=== PATIENT | female | born 1955 | race Caucasian/White ===

== ENCOUNTER → 2020-12-05 14:33 | Outpatient (CLI) | payer MEDICARE, OTHER, SELFPAY ==
--- NOTE | ~2020-12-05 | MM_ITS ---
EXAMINATION: MM screening [facility] BI w jeremy HISTORY: Screening TECHNIQUE: Craniocaudal and mediolateral oblique 3-D tomosynthesis images were obtained and synthetic 2-D images were generated. CAD analysis was submitted and interpreted. COMPARISON: Comparison to multiple prior studies sequentially, with oldest reviewed study dated 05/31. BREAST PARENCHYMAL COMPOSITION: There are scattered areas of fibroglandular density. FINDINGS: There is no evidence of suspicious mass, calcification, or architectural distortion to sugg est malignancy in either breast. There has been no suspicious interval change. IMPRESSION: 1. No mammographic evidence of malignancy. 2. Recommend routine screening mammography in one year. BI-RADS Category 1: Negative Reviewed, dictated and finalized at location A.
== END ==
PROVIDERS: PCP Family Medicine; Visit Provider Family Medicine
DX: Z12.31 Encounter for screening mammogram for malignant neoplasm of breast (principal)
CPT/HCPCS: 77063; 77067

== ENCOUNTER → 2021-06-09 13:43 | Outpatient (CLI) | payer MEDICARE, OTHER, SELFPAY ==
--- NOTE | ~2021-06-09 | DEXA_ITS ---
Bone Density Report Name: FREDRICK HOLCOMB Age: 65 Sex: Female Ethnicity: White Date of : 1955 Indication: osteopenia; postmenopausal Referring Provider: VALE, MYLES Vázquez Study: Bone densitometry was performed. Exam Date: June 09, 2021 Accession number: [id number] Bone Density: Region BMD T-score Z-score Classification AP Spine (L1-L4) 1.060 0.1 2.0 Normal Femoral Neck (Left) 0.656 -1.7 -0.1 Osteopenia Total Hip (Left) 0.807 -1.1 0.2 Osteopenia Femoral Neck (Right) 0.641 -1.9 -0.3 Osteopenia Total Hip (Right) 0.758 -1.5 -0.2 Osteopenia Total Hip Mean 0.783 -1.3 0.0 Osteopenia World Health Organization criteria for BMD impression classify patients as: Normal (T-score at or above -1.0), Osteopenia (T-score between -1.0 and -2.5), or Osteoporosis (T-score at or below -2.5). 10-year Fracture Risk(1): Major Osteoporotic Fracture 10% Hip Fracture 1.5% Reported Risk Factors: [place] (), Neck BMD=0.641, BMI=26.5 (1) FRAX(R) Version 3.08. Fracture probability calculated for an untreated patient. Fracture probability may be lower if the patient has received treatment. Previous Exams: Region Exam Age BMD T-score BMD Change BMD Change Date g/cm2 vs Baseline vs Previous AP Spine(L1-L4) 06/09/2021 65 1.060 0.1 0.004 0.052* 07/15/2012 56 1.008 -0.4 -0.047* -0.001 05/21/2010 54 1.010 -0.3 -0.046* -0.046* 04/30/2008 52 1.056 0.1 Total Hip(Left) 06/09/2021 65 0.807 -1.1 -0.049* -0.022 07/15/2012 56 0.830 -0.9 -0.027 -0.003 05/21/2010 54 0.833 -0.9 -0.024 -0.024 04/30/2008 52 0.857 -0.7 Total Hip(Right) 06/09/2021 65 0.758 -1.5 -0.087* -0.025 07/15/2012 56 0.783 -1.3 -0.062* -0.032* 05/21/2010 54 0.816 -1.0 -0.030* -0.030* 04/30/2008 52 0.845 -0.8 *Denotes significance at 95% confidence level, LSC for AP Spine = 0.022 g/cm2, LSC for Total Hip = 0.027 g/cm2 Clinical Information Provided by Patient: Has used the following medications: Vitamin D, MTV, SYNTHROID Patient maximum height was 65.0 Menopause Age: 51 No regular weight bearing exercise Drinks caffeinated beverages Onset of menses at age 11 Number of children 3 Impression: The patient has low bone mass, based on the Right Femoral Neck T-score. The patient h
== END ==
PROVIDERS: PCP Family Medicine; Visit Provider Family Medicine
DX: Z78.0 Asymptomatic menopausal state (principal); M85.852 Other specified disorders of bone density and structure, left thigh; M85.851 Other specified disorders of bone density and structure, right thigh
CPT/HCPCS: 77080

== ENCOUNTER → 2021-06-09 13:50 | Outpatient (CLI) | payer MEDICARE, OTHER, SELFPAY ==
--- NOTE | ~2021-06-09 | MR_ITS ---
EXAMINATION: MR abdomen wo/w con DATE: 06/09/2021 14:57 INDICATION: Pancreatic mass. TECHNIQUE: Magnetic resonance imaging (MRI) of the abdomen was performed without and with 14 mL Multi Robert intravenous contrast. Sequences included coronal T2-weighted FS FSE, coronal and axial FS FIEST A, axial T2-weighted FSE, coronal LAVA-flex, axial STIR FSE, axial DWI, axial dual-echo T1-weighted F SPGR, and axial LAVA. Postcontrast sequences included coronal LAVA-flex and a time course of axial LA VA. COMPARISON: None. FINDINGS: There are cysts in the liver measuring up to 6 mm. The gallbladder, spleen, adrenal glands are normal . There are cysts in the kidneys measuring up to 5 mm on the left. There is a 3.1 x 1.8 cm x 3.1 cyst ic lesion in the head of the pancreas with likely communication with the main pancreatic duct. No enh ancing component or wall thickening. The pancreatic duct is normal in caliber. There are no dilated l oops of bowel. There are no pathologically enlarged lymph nodes. There is no free intraperitoneal flu id. IMPRESSION: 1. 3.1 cm cystic lesion in the head of the pancreas with low risk features. The differential diagnosi s includes pseudocyst, intraductal papillary mucinous neoplasm (IPMN), mucinous cystic neoplasm (MCN) , serous cystadenoma, and neuroendocrine tumor. Consider endoscopic ultrasound with fine-needle aspir ation or follow-up abdomen MRI without and with contrast in 6 months. Reviewed, dictated and finalized at location A. IMPRESSION: 1. 3.1 cm cystic lesion in the head of the pancreas with low risk features. The differential diagnosis includes pseudocyst, intraductal papillary mucinous maximilian plasm (IPMN), mucinous cystic neoplasm (MCN), serous cystadenoma, and neuroendo crine tumor. Consider endoscopic ultrasound with fine-needle aspiration or foll ow-up abdomen MRI without and with contrast in 6 months.
[2021-06-09 14:10] LABS: Estimated Glomerular Filt Rate > 60
== END ==
PROVIDERS: PCP Family Medicine
DX: K86.89 Other specified diseases of pancreas (principal)
CPT/HCPCS: 74183; A9577

== ENCOUNTER → 2021-11-18 10:44 | Outpatient (CLI) | payer MEDICARE, OTHER, SELFPAY ==
--- NOTE | ~2021-11-18 | MR_ITS ---
EXAMINATION: MR MRCP wo/w con/w 3D wo ind DATE: 11/18/2021 12:03 INDICATION: Pancreatic mass. TECHNIQUE: Magnetic resonance imaging (MRI) of the abdomen was performed without and with 14 mL Multi Robert intravenous contrast. Sequences included coronal T2-weighted FS FSE, coronal T2-weighted FSE, a xial T1-weighted LAVA, coronal FS FIESTA, axial dual-echo T1-weighted SPGR, coronal lava-FLEX, sagitt al T2-weighted FSE, axial T2-weighted FSE, and axial DWI. Thick-slab T2-weighted FSE images were obta ined for magnetic resonance cholangiopancreatography (MRCP). Maximum intensity projection 3-D reconst ructions of the volumetric data were created by the technologist. Postcontrast sequences included cor onal LAVA-flex and time course of axial T1-weighted LAVA. COMPARISON: Abdomen MRI 06/09/2021 FINDINGS: ABDOMEN MRI: There are cysts in the liver measuring up to 5 mm. The gallbladder, spleen, and adrenal glands are normal. There are cysts in the kidneys measuring up to 6 mm on the left. There is a 3.5 x 2.4 x 3.2 cm cystic lesion of the head of the pancreas that previously measured 3.1 x 1.8 x 3.1 cm. N o enhancing component or wall thickening. The pancreatic duct is normal in caliber. There are no dila christy loops of bowel. ABDOMEN MRCP: The common duct is normal in caliber and measures 5 mm. IMPRESSION: 1. Stable 3.5 cm cystic lesion in the head of the pancreas with low risk features. The differential d iagnosis includes pseudocyst, intraductal papillary mucinous neoplasm (IPMN), mucinous cystic neoplas m (MCN), serous cystadenoma, and neuroendocrine tumor. Abdomen MRI without and with contrast is recom mended in 6 months. Reviewed, dictated and finalized at location A. IMPRESSION: 1. Stable 3.5 cm cystic lesion in the head of the pancreas with low risk featur es. The differential diagnosis includes pseudocyst, intraductal papillary mucin ous neoplasm (IPMN), mucinous cystic neoplasm (MCN), serous cystadenoma, and ne uroendocrine tumor. Abdomen MRI without and with contrast is recommended in 6 [facility].
== END ==
DX: K86.89 Other specified diseases of pancreas (principal)
CPT/HCPCS: 74183; 76376; A9577

== ENCOUNTER 2022-03-08 12:39 | Emergency (ER) | payer MEDICARE, OTHER, SELFPAY ==
[2022-03-08 12:57] VITALS: BP 104/63; PULSE 77; RESP 16; TEMP 37.3; O2SAT 98
--- NOTE | 2022-03-08 13:17 | ED.GENADULT ---
HPI - General Adult General Chief complaint: Fever Stated complaint: Fever/ Vomiting Time Seen by Provider: 03/08/22 13:20 Source: patient, RN notes reviewed and old records reviewed Mode of arrival: ambulatory Limitations: no limitations History of Present Illness HPI narrative: 66-year-old female presents to the [facility] with complaints of fever and vomiting. Reports that her was here last week on Wednesday and tested positive for COVID. She took 3 test last week they were all negative. Woke up this morning with a fever and generalized fatigue and body aches. Related Data Home Medications Medication Instructions Recorded Confirmed escitalopram oxalate 20 mg tablet 20 mg PO DAILY 03/08/22 03/08/22 fluticasone propionate 50 2 spray intranasal DIRECTED 03/08/22 03/08/22 mcg/actuation nasal spray,suspension levothyroxine 75 mcg tablet 75 mcg PO DAILY 03/08/22 03/08/22 (Synthroid) loratadine 10 mg tablet 10 mg PO DAILY 03/08/22 03/08/22 rosuvastatin 10 mg tablet 10 mg PO DAILY 03/08/22 03/08/22 Allergies Allergy/AdvReac Type Severity Reaction Status Date / Time methylprednisolone Allergy Unknown Unknown Verified 03/08/22 12:55 naproxen Allergy Unknown Other Verified 03/08/22 12:55 Sulfa (Sulfonamide Allergy Unknown Other Verified 03/08/22 12:55 Antibiotics) Review of Systems Review of Systems: All systems reviewed & are unremarkable except as noted in HPI and below Constitutional: Constitutional: Reports as per HPI, Reports fatigue and Reports fever(s) Eyes: Eyes: Reports no additional eye complaints ENT: Reports system reviewed and no additional complaints, except as documented Cardiovascular: Cardiovascular: Reports no additional cardiovascular complaints, Denies chest pain and Denies dyspnea Respiratory: Respiratory: Reports no additional respiratory complaints, Denies chest congestion, Denies cough and Denies dyspnea Gastrointestinal: Gastrointestinal: Reports as per HPI, Denies abdominal pain, Reports nausea and Reports vomiting Musculoskeletal: Musculoskeletal: Reports no additional musculoskeletal complaints Integumentary/Breasts: Skin/Breast: Reports system reviewed and no additional complaints, except as docu Neurologic: Reports system reviewed and no additional complaints, except as documented Psychiatric: Psychiatric: Reports no additional psychiatric complaints Allergic/Immunologic: Allergic/Immunologic: Reports no additional allergic/immunologic complaints PMFSH Past Medical History Medical History (Updated 03/08/22 @ 17:59 by Niru Mayorga APRN) Anxiety and depression High cholesterol Hypothyroid Family History Family History Father Hypertension Family history of elevated blood lipids Mother Hypertension Family history of elevated blood lipids Sibling Family history of elevated blood lipids Social History Social History Smoking status: Former smoker Smoking end date: 03/08/93 Alcohol intake: current Comments At the time of my signature, I reviewed and agree with the nursing past medical, surgical, social, and family history. There is no relevant family history pertinent to the patient complaint. Exam Const: General: cooperative, healthy appearing, comfortable, no acute distress, well developed, alert and well nourished Nutritional Appearance: well nourished Orientation/consciousness: patient oriented x3 Limitations: no limitations HENMT: Head: normal to inspection Ears: hearing grossly normal bilaterally and external ears normal Face/Nose/Sinus: Normal external nose present, Normal nares present, Normal nasal mucous membranes and turbinates present and normal facial exam Face and sinus: normal facial exam Mouth: Yes Normal oral and palatal mucosa present, Yes lip normal and Yes moist mucous membranes Throat: posterior oropharynx
== END 2022-03-08 13:43 | disposition home or self-care (01) ==
PROVIDERS: Emergency Provider Nurse Practitioner; PCP Family Medicine
DX: U07.1 COVID-19 (principal); E78.00 Pure hypercholesterolemia, unspecified; E03.9 Hypothyroidism, unspecified; Z87.891 Personal history of nicotine dependence; F41.9 Anxiety disorder, unspecified; F32.A Depression, unspecified
CPT/HCPCS: 87426; 87804; 99213; C9803; G0463

== ENCOUNTER → 2022-05-19 11:12 | Outpatient (CLI) | payer MEDICARE, OTHER, SELFPAY ==
--- NOTE | ~2022-05-19 | MM_ITS ---
EXAMINATION: MM screening [facility] BI w jeremy HISTORY: Screening mammogram TECHNIQUE: Craniocaudal and mediolateral oblique 3-D tomosynthesis images were obtained and synthetic 2-D images were generated. CAD analysis was submitted and interpreted. COMPARISON: 12/05/2020, 09/05/2015, 08/02/2014 bilateral screening mammogram examinations BREAST PARENCHYMAL COMPOSITION: There are scattered areas of fibroglandular density. FINDINGS: There is no evidence of suspicious mass, calcification, or architectural distortion to sugg est malignancy in either breast. There has been no suspicious interval change. IMPRESSION: 1. No mammographic evidence of malignancy. 2. Recommend routine screening mammography in one year. BI-RADS Category 1: Negative Reviewed, dictated and finalized at location A.
== END ==
PROVIDERS: PCP Family Medicine; Visit Provider Family Medicine
DX: Z12.31 Encounter for screening mammogram for malignant neoplasm of breast (principal)
CPT/HCPCS: 77063; 77067

== ENCOUNTER → 2022-05-20 07:38 | Outpatient (CLI) | payer MEDICARE, OTHER, SELFPAY ==
--- NOTE | ~2022-05-20 | MR_ITS ---
EXAMINATION: MR MRCP wo/w con/w 3D wo ind DATE: 05/20/2022 09:11 INDICATION: Pancreatic mass. TECHNIQUE: Magnetic resonance imaging (MRI) of the abdomen was performed without and with 14 mL Multi Robert intravenous contrast. Sequences included coronal T2-weighted FS FSE, coronal T2-weighted FSE, a xial T1-weighted LAVA, coronal FS FIESTA, axial dual-echo T1-weighted SPGR, coronal lava-FLEX, sagitt al T2-weighted FSE, axial T2-weighted FSE, and axial DWI. Thick-slab T2-weighted FSE images were obta ined for magnetic resonance cholangiopancreatography (MRCP). Maximum intensity projection 3-D reconst ructions of the volumetric data were created by the technologist. Postcontrast sequences included cor onal LAVA-flex and time course of axial T1-weighted LAVA. COMPARISON: Abdomen MRI 11/18/2021, 06/09/2021 FINDINGS: ABDOMEN MRI: There are cysts in the liver measuring up to 5 mm . The gallbladder is normal. There is a small sliding hiatal hernia. The spleen and adrenal glands are normal. In the head of the pancreas, there is a 3.6 cm cystic lesion. No enhancing component or wall thickening. There are cysts in the k idneys measuring up to 5 mm on the left. ABDOMEN MRCP: The common duct is normal and measures 5 mm . The cystic lesion of the pancreas abuts t he common duct, but there is no communication. There is no pancreatic duct indication. The pancreatic duct is normal in caliber. IMPRESSION: 1. Stable 3.6 cm cystic lesion in the head of the pancreas with low risk features. The differential d iagnosis includes pseudocyst, intraductal papillary mucinous neoplasm (IPMN), mucinous cystic neoplas m (MCN), serous cystadenoma, and neuroendocrine tumor. Abdomen MRI without and with contrast is recom mended in 6 months. Reviewed, dictated and finalized at location A. IMPRESSION: 1. Stable 3.6 cm cystic lesion in the head of the pancreas with low risk featur es. The differential diagnosis includes pseudocyst, intraductal papillary mucin ous neoplasm (IPMN), mucinous cystic neoplasm (MCN), serous cystadenoma, and ne uroendocrine tumor. Abdomen MRI without and with contrast is recommended in 6 [facility].
== END ==
PROVIDERS: PCP Family Medicine
DX: K86.89 Other specified diseases of pancreas (principal)
CPT/HCPCS: 74183; 76376; A9577

== ENCOUNTER 2023-06-11 08:08 | Outpatient (CLI) | payer MEDICARE, OTHER, SELFPAY ==
--- NOTE | ~2023-06-11 | MR_ITS ---
EXAMINATION: MR MRCP wo/w con/w 3D wo ind DATE: 06/11/2023 09:21 INDICATION: Pancreatic mass. TECHNIQUE: Magnetic resonance imaging (MRI) of the abdomen was performed without and with 14 mL Multi Robert intravenous contrast. Sequences included coronal T2-weighted FS FSE, coronal T2-weighted FSE, a xial T1-weighted LAVA, coronal FS FIESTA, axial dual-echo T1-weighted SPGR, coronal lava-FLEX, sagitt al T2-weighted FSE, axial T2-weighted FSE, and axial DWI. Thick-slab T2-weighted FSE images were obta ined for magnetic resonance cholangiopancreatography (MRCP). Maximum intensity projection 3-D reconst ructions of the volumetric data were created by the technologist. Postcontrast sequences included cor onal LAVA-flex and time course of axial T1-weighted LAVA. COMPARISON: MRCP 05/20/22, 06/09/21 FINDINGS: ABDOMEN MRI: There is a small sliding hiatal hernia. There are cysts in the liver measuring up to 6 m m. The spleen is normal. There is a 3.7 cm cystic lesion in the head of the pancreas. The main pancre atic duct is normal in caliber. The adrenal glands are normal. There are cysts in the kidneys measuri ng up to 5 mm. There are no dilated loops of bowel. There are no pathologically enlarged lymph nodes. There is no free intraperitoneal fluid. ABDOMEN MRCP: The common duct is normal and measures 6 mm. No choledocholithiasis. IMPRESSION: 1. 3.7 cm cystic lesion of the pancreas with low risk features, stable from 06/09/21. The differential diagnosis includes pseudocyst, intraductal papillary mucinous neoplasm (IPMN), mucinous cystic neopla sm (MCN), serous cystadenoma, and neuroendocrine tumor. Abdomen MRI without and with contrast is darryl mmended in one year. Reviewed, dictated and finalized at location A. IMPRESSION: 1. 3.7 cm cystic lesion of the pancreas with low risk features, stable from 06/09. The differential diagnosis includes pseudocyst, intraductal papillary muci nous neoplasm (IPMN), mucinous cystic neoplasm (MCN), serous cystadenoma, and n euroendocrine tumor. Abdomen MRI without and with contrast is recommended in on e year.
== END 2023-06-11 08:09 ==
LOC: MICIMG 08:09
PROVIDERS: PCP Family Medicine
DX: K86.89 Other specified diseases of pancreas (principal)
CPT/HCPCS: 74183; 76376; A9577

== ENCOUNTER 2023-08-03 15:27 | Outpatient (CLI) | payer MEDICARE, OTHER, SELFPAY ==
--- NOTE | ~2023-08-03 | MM_ITS ---
EXAMINATION: MM screening [facility] BI w jeremy HISTORY: Screening TECHNIQUE: Craniocaudal and mediolateral oblique 3-D tomosynthesis images were obtained and synthetic 2-D images were generated. CAD analysis was submitted and interpreted. COMPARISON: Comparison to multiple prior studies sequentially, with oldest reviewed study dated 08/02. BREAST PARENCHYMAL COMPOSITION: Not dense: There are scattered areas of fibroglandular density. FINDINGS: There is no evidence of suspicious mass, calcification, or architectural distortion to sugg est malignancy in either breast. There has been no suspicious interval change. IMPRESSION: 1. No mammographic evidence of malignancy. 2. Recommend routine screening mammography in one year. BI-RADS Category 1: Negative Reviewed, dictated and finalized at location B.
== END 2023-08-03 15:28 ==
LOC: MICIMG 15:28
PROVIDERS: PCP Family Medicine; Visit Provider Family Medicine
DX: Z12.31 Encounter for screening mammogram for malignant neoplasm of breast (principal)
CPT/HCPCS: 77063; 77067

== ENCOUNTER 2023-11-16 09:56 | Outpatient (CLI) | payer MEDICARE, OTHER, SELFPAY ==
--- NOTE | ~2023-11-16 | DEXA_ITS ---
Bone Density Report Name: FREDRICK HOLCOMB Age: 68 Sex: Female Ethnicity: White Date of : 1955 Indication: postmenopausal; screening for osteoporosis; height loss; Referring Provider: VALE, MYLES Vázquez Study: Bone densitometry was performed. Exam Date: November 16, 2023 Accession number: [id number] Bone Density: Region BMD T-score Z-score Classification AP Spine(L1-L4) 1.011 -0.3 1.7 Normal Femoral Neck (Left) 0.640 -1.9 -0.1 Osteopenia Total Hip (Left) 0.842 -0.8 0.6 Normal Femoral Neck (Right) 0.623 -2.0 -0.3 Osteopenia Total Hip (Right) 0.800 -1.2 0.3 Osteopenia Total Hip Mean 0.821 -1.0 0.5 Normal World Health Organization criteria for BMD impression classify patients as: Normal (T-score at or above -1.0), Osteopenia (T-score between -1.0 and -2.5), or Osteoporosis (T-score at or below -2.5). 10-year Fracture Risk(1): Major Osteoporotic Fracture 12% Hip Fracture 2.1% Reported Risk Factors: [place] (), Neck BMD=0.623, BMI=27.8 (1) FRAX(R) Version 3.08. Fracture probability calculated for an untreated patient. Fracture probability may be lower if the patient has received treatment. Clinical Information Provided by Patient: Has used the following medications: Vitamin D, Calcium Patient maximum height was 64 No regular weight bearing exercise Drinks caffeinated beverages Onset of menses at age 11 Number of children 3 Impression: The patient has low bone mass, based on the Right Femoral Neck T-score. The patient has an estimated ten-year risk of hip fracture of 2.1% and an estimated ten-year risk of major fracture of 12%, based on the WHO FRAX algorithm. Discussion: BONE DENSITY IS LOW AT ONE OR MORE SKELETAL SITES. This patient's lowest T-score is low at one or more skeletal sites. It meets the World Health Organization's (WHO) criteria for ?low bone mass? (T-score between -1.0 and -2.5). The patient's 10-year risk of fracture as calculated by FRAX is less than the threshold where pharmacological therapy is recommended by the National Osteoporosis Foundation (NOF). However, all treatment decisions require clinical judgment and consideration of individual patient factors, including patient preferences, comorbidities, previous drug use, risk factors not captured in the FRAX model (e.g., frailty, falls, vitamin D deficiency, increased bone turnover, interval significant decline in bone density) and possible under or overestimation of fracture risk by FRAX. The patient should follow a healthful lifestyle (good nutrition with adequate calcium and vitamin D, and appropriate weight-bearing exercise). Follow-Up: Consider repeating this study in 2 to 3 years to reassess this patient's status, or sooner if there is some new clinical indication. Reported by: Tsering
== END 2023-11-16 09:57 | disposition home or self-care (01) ==
LOC: ANHIMG 09:58
PROVIDERS: PCP Family Medicine; Visit Provider Family Medicine
DX: M85.89 Other specified disorders of bone density and structure, multiple sites (principal); Z78.0 Asymptomatic menopausal state; Z12.31 Encounter for screening mammogram for malignant neoplasm of breast
CPT/HCPCS: 77080

== ENCOUNTER 2024-08-02 06:36 | Outpatient (CLI) | payer MEDICARE, OTHER, SELFPAY ==
--- NOTE | ~2024-08-02 | MR_ITS ---
EXAMINATION: MR MRCP wo con/w 3D wo ind pp DATE: 08/02/2024 08:04 INDICATION: Pancreatic cyst TECHNIQUE: Magnetic resonance imaging (MRI) of the abdomen was performed without and with 14 mL Multi lise intravenous contrast. Sequences included coronal T2-weighted SS-FSE, coronal T2-weighted FS SS- FSE, coronal T2-weighted FS FIESTA, axial T2-weighted FS FIESTA, axial T2-weighted FIESTA, sagittal T 2-weighted SS-FSE, axial T1-weighted dual-echo FSPGR, axial T2-weighted SS-FSE, axial T1-weighted LAV A, axial T2-weighted STIR FSE. Thick-slab T2-weighted FRFSE-XL images were obtained for magnetic reso nance cholangiopancreatography (MRCP). Rotating maximum intensity projection 3-D reconstructions of t he volumetric data were created by the technologist. Postcontrast sequences included a time course of axial T1-weighted LAVA. COMPARISON: 06/11/2023 FINDINGS: ABDOMEN MRI: Heart size is normal. No pericardial or pleural effusion. Small sliding-type hiatal hernia. 5 mm T2 h yperintense nonenhancing hepatic cysts. Gallbladder, spleen bilateral adrenal glands are normal. Subc entimeter T2 hyperintense nonenhancing bilateral renal cysts, the larger on the left measuring 5 mm. 3.7 x 2.1 x 3.6 cm cystic lesion at the head of the pancreas with no evident solid soft tissue compon ent. Visualized portions of bowels are unremarkable. No dilated bowel to suggest obstruction. No path ologically enlarged abdominal lymphadenopathy. Mild lumbar levocurvature with moderate spondylosis. ABDOMEN MRCP: No intrahepatic biliary ductal dilation. The common bile duct measures up to 7 mm in maximal diameter which is within normal limits for age. There is extrinsic compression of the mid common bile duct re sulting from the adjacent cystic lesion at the head of the pancreas. No filling defects to suggest ch oledocholithiasis. IMPRESSION: 1. No change in a likely benign 3.7 cm cystic lesion at the head of the pancreas without evident dar d soft tissue component. Recommend continued one-year follow-up pre and postcontrast MRI. Reviewed, dictated and finalized at location A. IMPRESSION: 1. No change in a likely benign 3.7 cm cystic lesion at the head of the pancrea s without evident solid soft tissue component. Recommend continued one-year fol low-up pre and postcontrast MRI.
--- OUTSIDE RECORDS SUMMARY | 2024-08-02 06:43 | XMS_ITS | Clinical Summary ---
Author Organization [facility] Address [address] [place] [address] Care Team Providers Care Associate Professor Of Theology Name Role Phone Jami Bryan MD Primary Care Provider + Bernarda Robin MD Unavailable [phone] Allergies Active Allergy Reactions Criticality Noted Date Comments Sulfa (Sulfonamide Antibiotics) Itching Low 05/2020 Medications Synthroid 75 mcg tablet Take 1 tablet (75 mcg total) by mouth daily 1 Active loratadine (CLARITIN) 10 mg tablet 1 Active Crestor 10 mg tablet 1 Active fluticasone propionate (FLONASE) 50 mcg/actuation nasal spray 1 Active cholecalciferol (VITAMIN D-3) 2000 unit capsule Take 1 capsule (2,000 Units total) by mouth daily Active melatonin tablet 1 tablet (3 mg total) Active escitalopram (LEXAPRO) 10 mg tablet Take 1 tablet (10 mg total) by mouth daily Active calcium acetate,phosphat bind, (PHOSLO) 667 mg tablet Take 2 tablets (1,334 mg total) by mouth once as needed Active ondansetron ODT (ZOFRAN-ODT) 4 mg disintegrating tablet Take 2 tablets (8 mg total) by mouth every 8 (eight) hours as needed for nausea or vomiting 20 tablet 2 Active magnesium gluconate 200 mg tabletIndications: hypomagnesemia 1 tablet (200 mg total) 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 Active Active Problems Problem Noted Date Diagnosed Date Pancreatic mass 08/14/2020 Overview (08/14/2020): Added automatically from request for surgery [id number] Encounters Date Type Department Care Team Description 06/21/2024 Orders Only [facility] Gastroenterology [address] [place] [address] Medical Office [address] [place] [address] Cyn Alcocer MD Pancreatic mass (Primary Dx) from Last 3 Months Surgical History Surgery Date Site/Laterality Comments COLONOSCOPY OVARIAN CYST REMOVAL UPPER ENDOSCOPIC ULTRASOUND W/ FNA Medical History Medical History Date Comments PONV (postoperative nausea and vomiting) Dysphagia Hyperlipidemia Hypothyroidism Pancreas cyst Seasonal allergies Sleep disturbance Pancreatitis After EUS Family History Medical History Relation Name Comments Heart attack Father Ovarian cancer Mother Relation Name Status Comments Father Mother Social History Tobacco Use Types Packs/Day Years Used Date Smoking Tobacco: Former Smokeless Tobacco: Never Tobacco Cessation:Counseling Given: Not Answered AUDIT-C Answer Date Recorded Q1: How often do you have a drink containing alc ohol? Never 08/08/2020 Average Number of Drinks Not on file 021 Frequency of Binge Drinking Not on file 05/2020 Personal Safety Answer Date Recorded Getting School Help Needed Not on file 03/29 Comments Unknown Sex and Gender Information Value Date Recorded Sex Assigned at Not on file Legal Sex Female 7:02 PM [employer] Gender Identity Female 09/03/2020 7:19 AM CDT Sexual Orientation Straight 09/03/2020 7: 19 AM CDT Obstetrics History Last Filed Vital Signs Vital Sign Reading Time Taken Comments Blood Pressure 120/71 09/02/2023 8:36 AM CDT Pulse 49 09/02/2023 8:36 AM CDT Temperature 36.6 C (97.9 F) 09/02/2023 8:36 AM CDT Respiratory Rate 18 07/02/2021 3:14 AM CDT Oxygen Saturation 98% 09/02/2023 8:36 AM CDT Inhaled Oxygen Concentration - - Weight 70.8 kg (156 lb) 09/02/2023 8:36 AM CDT Height 167.6 cm (5' 6) 09/02/2023 8:36 AM CDT Body Mass Index 25.18 09/02/2023 8:36 AM CDT Plan of Treatment Health Maintenance Due Date Last Done Comments Colon Cancer Screening-Colonoscopy 1954 Depression Screening 1954 Hepatitis C Screening 1954 Osteoporosis Screening-Bone Density Scan 1954 Hepatitis B Screening 1972 Well Visit 65+ 10/23/2019 Breast Cancer Screening-Mammogram 04/19/2020 020, 04/19/2019 Pneumococcal vaccine 65+ (2 of 2 - PCV) 10/26/2020 10/27/2019 Fall Risk Assessment 06/27/2022 06/27/2021 Influenza Vaccine (Season Ended) 2024 12/10/2020, 12/11/2019, 12/09/2019, Additional history exists DTaP/Tdap/Td Vaccine (2 - Td or Tdap) 09/22/2027 09/21/2017 Zoster Vaccine Completed 01/12/2020, 10/27/2019 Insurance [employer] CHO[employer] MEDICARE PPO [facility] MEDICARE ADVANTAGE [facility] MEDICARE ADVANTAGE FOR LIFE Advance Directives For more information, please contact: [phone] * Full Code (Latest Code Status on File) Date Activated Date Inactivated Comments 06/27/2021 7:28 AM 06/27/2021 1:31 PM * Full Code Date Activated Date Inactivated Comments 08/11/2020 5:54 PM 08/13/2020 4:44 PM * Full Code Date Activated Date Inactivated Comments 08/08/2020 8:24 AM 08/08/2020 2:33 PM Care Teams Associate Professor Of Theology Relationship Specialty Start Date End Date Jami Bryan MD [address] [place] [address] PCP - General 12/22/19 Bernarda Robin MD [address] [place] [address] [place] [id number] [employer] Gastroenterology 08/14/20
--- OUTSIDE RECORDS SUMMARY | 2024-08-02 06:43 | XMS_ITS | Data Portability ---
Author Organization [facility], Main Office Address [address] [place] [address] Assessment No assessment recorded. Plan of Treatment Reminders Order Date Submit Date Provider Last Modified By Organization Details Last Modified Time Details Appointments None recorded. Lab vitamin D, 25-hydroxy , total, serum 2024 025 [facility], [address] [facility], [place], [address], 5 03:23:38 CMP, serum or plasma 2024 025 [facility], [address] , [place], [address], 5 03:23:36 CBC w/ auto diff 2024 025 [facility], [address] [facility], [place], [address], 5 03:23:37 lipid panel, serum 2024 025 [facility], [address] , [place], [address], 5 03:23:34 TSH, serum or plasma 2024 025 [facility], [address] [facility], [place], [address], 5 03:23:39 lipid panel, serum 2023 024 [facility], [address] [facility], [place], [address], 4 08:20:49 CMP, serum or plasma 2023 024 [facility], [address], [place], [address], 4 08:09:02 CBC w/ auto diff 2023 024 [facility], [address], [place], [address], 4 08:20:49 HbA1c (hemoglobi n A1c), blood 2023 024 [facility], [address], [place], [address], 4 08:20:49 vitamin D, 25-hydroxy , total, serum 2023 024 [facility], [address], [place], [address], 4 08:20:49 noninvasiv e colorectal cancer DNA + occult blood screening, QL, stool 2023 024 [facility] (Cologuard Orders Only), [address], [address], [place], [address], 4 10:50:45 TSH + free T4, serum 2023 024 [facility], [address], [place], [address], 4 08:09:03 Referral obstetrici an and gynecologi st referral - Please call patient to schedule an appointmen t. Thank you. 2024 025 SAMIMayGouCarmenza Reyes MD, [address], [address], [place], [address], 5 15:52:30 Procedures None recorded. Surgeries None recorded. Imaging MAMMO, screening, digital, bilateral - *Please call pt to schedule* 2023 024 [facility], [address], [address], [place], [address], 4 13:39:55 DEXA - *Please call pt to schedule* 2023 024 [facility], [address], [place], [address], 4 15:29:40 Medication Orders Flonase Allergy Relief 50 mcg/actuat ion nasal spray,susp ension 2024 025 [facility], [address] [place] [address], [address], 5 11:23:08 loratadine 10 mg tablet [address] [facility], [address] [place] [address], [address], 5 11:23:07 rosuvastat in 10 mg tablet [address] [facility], [address] [place] [address], [address], 5 11:23:08 magnesium oxide 400 mg (241.3 mg magnesium) tablet [address] [facility], [address] [place] [address], [address], 5 11:23:09 Synthroid 75 mcg tablet 2024 025 [facility], [address] [place] [address], [address], 5 11:23:02 escitalopr am 10 mg tablet 2024 025 [facility], [address] [place] [address], [address], 5 11:23:17 docusate sodium 100 mg capsule [facility], [address] [place] [address], [address], 5 10:57:48 Flonase Allergy Relief 50 mcg/actuat ion nasal spray,susp ension [address] [facility], [address] [place] [address], [address], 4 11:38:19 loratadine 10 mg tablet [address] [facility], [address] [place] [address], [address], 4 11:38:16 rosuvastat in 10 mg tablet [address] [facility], [address] [place] [address], [address], 4 11:38:15 escitalopr am 10 mg tablet [address] [facility], [address] [place] [address], [address], 4 11:38:13 Synthroid 75 mcg tablet [address] [facility], [address] [place] [address], [address], 4 11:38:14 loratadine 10 mg tablet [address] [facility], [address] [place] [address], [address], 4 12:05:02 Flonase Allergy Relief 50 mcg/actuat ion nasal spray,susp ension [address] [facility], [address] [place] [address], [address], 4 12:05:04 rosuvastat in 10 mg tablet 2023 024 [facility] EDUARD[facility], [address] [place], [address], 4 12:05:03 Patient TargetsNo targets recorded. Patient Instructions Encounter Date Encounter Id Patient Instructions Last Modified By Organization Details Last Modified Time 04/08/2023 [id number] multi-dimensiona l health assessment questionnaire* [email or web address] Not available 04/08/2023 18:32:02 Personalized a lt Plan and Screening Recommendations Advance Directives - Do you have one? Advance Directives - Do we have your advance directive on file in your health record? Primary Prevention/Interven tion (prevents or decreases the chance of common diseases from occurring) Smoking Risk: Alcohol Misuse Screening: Weight: Physical activity: Nutrition: Fall Risk (screened today): Vaccines Pneumococcal: Influenza: Recommended today, but you have declined Chronic Disease Risks Stroke: Active diagnosis, Continue current treatment plan Heart Attack: Active diagnosis, Continue current treatment plan Clogging of the Arteries: Active diagnosis, Continue current treatment plan Diabetes: Active diagnosis, Continue current treatment plan Secondary Prevention/Interven tion (detects treatable diseases before they may cause symptoms, disability, or ) Breast Cancer Screening with mammogram: Cervical/Uterine/Ov marti Cancer Screening: Osteoporosis Screening: Date Screening Last Performed: Colon Cancer Screening: Date Screening Last Performed: Eye Disease Screening: Ordered Recommended today Recommended today, but you have declined No Eye exam necessary Your next exam in: Dementia Risk: Depression Screening: Active diagnosis, Continue current treatment plan [email or web address] Not available 04/08/2023 12:08:33 11/18/2023 [id number] Follow up in 6 months Prescriptions sent to pharmacy Obtain labs Tests: Complete cologuard Referral: Recommend: Influenza vaccine Pneumococcal vaccine Tetanus vaccine Shingles vaccine Not available 11/18/2023 11:37:41 05/18/2024 [id number] dementia rating scale-2* Not available 05/18/2024 11:22:54 multi-dimensiona l health assessment questionnaire* Not available 05/18/2024 11:22:55 care plan* Not available 05/18 11:22:55 advance directiv es: care instructions Not available 05/18/2024 11:22:55 advance care planning: care instructions Not available 05/18/2024 11:22:55 [place] Advance Directives Not available 05/18/2024 11:22:54 Follow up in 3 months Prescriptions sent to pharmacy Tests: Referral: Recommend: Tetanus vaccine Personalized Health Plan and Screening Recommendations Advance Directives - Do you have one? Yes Advance Directives - Do we have your advance directive on file in your health record? No, please bring in a copy at your earliest convenience Primary Prevention/Interven tion (prevents or decreases the chance of common diseases from occurring) Smoking Risk: Non Smoker Alcohol Misuse Screening: Negative Weight: Appropriate try to lose 5% of your body weight Physical activity: Appropriate physical activity minimum of 20-30 minutes activity that causes mild breathlessness/day Nutrition: Good Refer to attached handout DASH Diet: After Your Visit Fall Risk (screened today): Low Refer to attached handout Preventing Falls: After your Visit Vaccines Pneumococcal: Recommended today Influenza: Recommended today, but you have declined Chronic Disease Risks Stroke: Low Risk I have no recommendations Heart Attack: Low risk I have no recommendations Clogging of the Arteries: Low risk I have no recommendations Diabetes: Low Risk I have no recommendations Secondary Prevention/Interven tion (detects treatable diseases before they may cause symptoms, disability, or ) Breast Cancer Screening with mammogram: No screening necessary Cervical/Uterine/Ov marti Cancer Screening: No screening necessary Osteoporosis Screening: No screening necessary Date Screening Last Performed: _11/16/2023 Colon Cancer Screening: Cologuard (DNA stool test) No screening necessary Date Screening Last Performed: ____ Eye Disease Screening: No Eye exam necessary Dementia Risk: Low I have no recommendations Depression Screening: Negative Not available 05/18/2024 11:22:15 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 Thank you. Referring Physician: Eulogio Estes, Internal Medicine, Encounter Date: 07/03/2024 Results Created Date Observation Date Name Description Value Unit Range Abnormal Flag Note LastModifiedBy Organization Detail LastModifiedTime 03/31/1904/01/2023 LIPID PANEL , STAND BOY cholesterol, total 190 mg/dL <200 normal Not Available [facility] [address] [address] [place], [address], 04/01/2023 07:06:01 03/31/1904/01/2023 LIPID PANEL , STAND BOY HDL cholesterol 58 mg/dL > or = 50 normal Not Available [facility] [address] [place], [address], 04/01/2023 07:06:01 03/31/1904/01/2023 LIPID PANEL , STAND BOY triglyceride s 101 mg/dL <150 normal Not Available [facility] [address] [address] [place], [address], 04/01/2023 07:06:01 03/31/1904/01/2023 LIPID PANEL , STAND BOY LDL-choleste rol 112 mg/dL _(risa c) high Refer ence range : <100 Paulo able range <100 mg/dL for prima ry preve ntion ; <70 mg/dL for patie nts with CHD or diabe tic patie nts with > or = 2 CHD risk facto rs. LDL-C is now calcu lated using the Rhonda n-Hop kins navinu devin n, which is a valid ated novel metho d abbe soria r accur acy than the Fried ludwin equat ion in the estim ation of LDL-C . Rhonda sharma SS et al. EMILI. 2013; 310(1 9): 2061- 2068 (http ://ed eldaati on.Qu Raad hernandez tics. com/f aq/FA Q164) Not Available [facility] [address] [place], [address], 04/01/2023 07:06:01 03/31/1904/01/2023 LIPID PANEL , STAND BOY chol/HDLC ratio 3.3 (calc ) <5.0 normal Not Available [address], [address], 04/01/2023 07:06:01 03/31/19 24 04/01/2023 LIPID PANEL , STAND BOY non HDL cholesterol 132 mg/dL _(risa c) <130 high For patie nts with diabe kell plus 1 major ASCVD risk facto r, treat ing to a non-H DL-C goal of <100 mg/dL (LDL- C of <70 mg/dL ) is consi dered a thera peuti c optio n. Not Available [address], [address], 04/01/2023 07:06:01 03/31/1904/01/2023 BASIC METAB OLIC PANEL glucose 85 mg/dL 65-99 normal Fasti ng refer ence inter allyson Not Available [address], [address], 04/01/2023 07:06:02 03/31/19 24 04/01/2023 BASIC METAB OLIC PANEL urea nitrogen (BUN) 14 mg/dL 7-25 normal Not Available [address], [address], 04/01/2023 07:06:02 03/31/1904/01/2023 BASIC METAB OLIC PANEL creatinine 0.83 mg/dL 0.50-1 .05 normal Not Available [facility] [address], [address], 04/01/2023 07:06:02 03/31/19 24 04/01/2023 BASIC METAB OLIC PANEL eGFR 77 mL/mi n/1.7 3m2 > or = 60 normal Not Available [address], [address], 04/01/2023 07:06:02 03/31/1904/01/2023 BASIC METAB OLIC PANEL BUN/creatini ne ratio SEE NOTE: (calc ) 6-22 Not Repor christy: BUN and Creat inine are withi n refer ence range . Not Available [address], [address], 04/01/2023 07:06:02 03/31/1904/01/2023 BASIC METAB OLIC PANEL sodium 139 mmol/ L 135-14 6 normal Not Available [address], [address], 04/01/2023 07:06:02 03/31/1904/01/2023 BASIC METAB OLIC PANEL potassium 4.4 mmol/ L 3.5-5. 3 normal Not Available [address], [address], 04/01/2023 07:06:02 03/31/19 24 04/01/2023 BASIC METAB OLIC PANEL chloride 103 mmol/ L 98-110 normal Not Available [address], [address], 04/01/2023 07:06:02 03/31/1904/01/2023 BASIC METAB OLIC PANEL carbon dioxide 27 mmol/ L 20-32 normal Not Available [address], [address], 04/01/2023 07:06:02 03/31/1904/01/2023 BASIC METAB OLIC PANEL calcium 9.3 mg/dL 8.6-10 .4 normal Not Available [address], [address], 04/01/2023 07:06:02 03/31/19 24 04/01/2023 HEPAT IC FUNCT ION PANEL protein, total 6.7 g/dL 6.1-8. 1 normal Not Available [address], [address], 04/01/2023 07:06:03 03/31/19 24 04/01/2023 HEPAT IC FUNCT ION PANEL albumin 4.1 g/dL 3.6-5. 1 normal Not Available [address], [address], 04/01/2023 07:06:03 03/31/19 24 04/01/2023 HEPAT IC FUNCT ION PANEL globulin 2.6 g/dL_ (calc ) 1.9-3. 7 normal Not Available [address], [address], 04/01/2023 07:06:03 03/31/19 24 04/01/2023 HEPAT IC FUNCT ION PANEL albumin/glob ulin ratio 1.6 (calc ) 1.0-2. 5 normal Not Available [address], [address], 04/01/2023 07:06:03 03/31/19 24 04/01/2023 HEPAT IC FUNCT ION PANEL bilirubin, total 0.7 mg/dL 0.2-1. 2 normal Not Available [address], [address], 04/01/2023 07:06:03 03/31/19 24 04/01/2023 HEPAT IC FUNCT ION PANEL bilirubin, direct 0.1 mg/dL < or = 0.2 normal Not Available [address], [address], 04/01/2023 07:06:03 03/31/19 24 04/01/2023 HEPAT IC FUNCT ION PANEL bilirubin, indirect 0.6 mg/dL _(risa c) 0.2-1. 2 normal Not Available [address], [address], 04/01/2023 07:06:03 03/31/19 24 04/01/2023 HEPAT IC FUNCT ION PANEL alkaline phosphatase 68 U/L 37-153 normal Not Available [facility] [employer] [address], [address], 04/01/2023 07:06:03 03/31/1904/01/2023 HEPAT IC FUNCT ION PANEL AST 19 U/L 10-35 normal Not Available [address], [address], 04/01/2023 07:06:03 03/31/19 24 04/01/2023 HEPAT IC FUNCT ION PANEL ALT 9 U/L 6-29 normal Not Available [address], [address], 04/01/2023 07:06:03 03/31/1904/01/2023 CBC (INCL UDES DIFF/ PLT) white blood cell count 4.8 thous and/u L 3.8-10 .8 normal Not Available [address], [address], 04/01/2023 07:06:04 03/31/19 24 04/01/2023 CBC (INCL UDES DIFF/ PLT) red blood cell count 4.61 yumiko on/uL 3.80-5 .10 normal Not Available [address], [address], 04/01/2023 07:06:04 03/31/1904/01/2023 CBC (INCL UDES DIFF/ PLT) hemoglobin 13.6 g/dL 11.7-1 5.5 normal Not Available [facility] [address], [address], 04/01/2023 07:06:04 03/31/19 24 04/01/2023 CBC (INCL UDES DIFF/ PLT) hematocrit 41.8 % 35.0-4 5.0 normal Not Available [facility] [address], [address], 04/01/2023 07:06:04 03/31/1904/01/2023 CBC (INCL UDES DIFF/ PLT) MCV 90.7 fL 80.0-1 00.0 normal Not Available [address], [address], 04/01/2023 07:06:04 03/31/1904/01/2023 CBC (INCL UDES DIFF/ PLT) MCH 29.5 pg 27.0-3 3.0 normal Not Available [address], [address], 04/01/2023 07:06:04 03/31/19 24 04/01/2023 CBC (INCL UDES DIFF/ PLT) MCHC 32.5 g/dL 32.0-3 6.0 normal Not Available [address], [address], 04/01/2023 07:06:04 03/31/1904/01/2023 CBC (INCL UDES DIFF/ PLT) RDW 12.7 % 11.0-1 5.0 normal Not Available [address], [address], 04/01/2023 07:06:04 03/31/1904/01/2023 CBC (INCL UDES DIFF/ PLT) platelet count 291 thous and/u L 140-40 0 normal Not Available [address], [address], 04/01/2023 07:06:04 03/31/1904/01/2023 CBC (INCL UDES DIFF/ PLT) MPV 10.2 fL 7.5-12 .5 normal Not Available [address], [address], 04/01/2023 07:06:04 03/31/19 24 04/01/2023 CBC (INCL UDES DIFF/ PLT) absolute neutrophils 2722 cells /uL 1500-7 800 normal Not Available [address], [address], 04/01/2023 07:06:04 03/31/1904/01/2023 CBC (INCL UDES DIFF/ PLT) absolute lymphocytes 1330 cells /uL 850-39 00 normal Not Available [address], [address], 04/01/2023 07:06:04 03/31/1904/01/2023 CBC (INCL UDES DIFF/ PLT) absolute monocytes 523 cells /uL 200-95 0 normal Not Available [address], [address], 04/01/2023 07:06:04 03/31/1904/01/2023 CBC (INCL UDES DIFF/ PLT) absolute eosinophils 163 cells /uL 15-500 normal Not Available [address], [address], 04/01/2023 07:06:04 03/31/1904/01/2023 CBC (INCL UDES DIFF/ PLT) absolute basophils 62 cells /uL 0-200 normal Not Available [address], [address], 04/01/2023 07:06:04 03/31/1904/01/2023 CBC (INCL UDES DIFF/ PLT) neutrophils 56.7 % normal Not Available [address], [address], 04/01/2023 07:06:04 03/31/19 24 04/01/2023 CBC (INCL UDES DIFF/ PLT) lymphocytes 27.7 % normal Not Available [facility] [address], [address], 04/01/2023 07:06:04 03/31/19 24 04/01/2023 CBC (INCL UDES DIFF/ PLT) monocytes 10.9 % normal Not Available [address], [address], 04/01/2023 07:06:04 03/31/19 24 04/01/2023 CBC (INCL UDES DIFF/ PLT) eosinophils 3.4 % normal Not Available [address], [address], 04/01/2023 07:06:04 03/31/19 24 04/01/2023 CBC (INCL UDES DIFF/ PLT) basophils 1.3 % normal Not Available [address], [address], 04/01/2023 07:06:04 03/31/1904/01/2023 T4, FREE T4, free 1.4 NG/dL 0.8-1. 8 normal Not Available [address], [address], 04/01/2023 07:06:05 03/31/1904/01/2023 TSH TSH 1.81 mIU/L 0.40-4 .50 normal Not Available [address], [address], 04/01/2023 07:06:06 03/31/1904/01/2023 VITAM IN D,25- OH,TO AZIZA,I A vitamin D,25-oh,tota l,ia 59 NG/mL 30-100 normal Vitam in D Statu s 25-OH Vitam in D: Defic iency : <20 ng/mL Insuf ficie ncy: 20 - 29 ng/mL Optim al: > or = 30 ng/mL For 25-OH Vitam in D testi ng on patie nts on D2-restrepo pplem entat ion and patie nts for whom quant itati on of D2 and D3 fract ions is requi red, the [facility] e[facility](TM ) 25-OH VIT D, (D2,D 3), LC/MS /MS is recom wing d: order code 26593 (flex ents >2yrs ). See Note 1 Note 1 For addit ional infor gina lanza refer to http: //[facility] vale Pastor stDia gnost ics.c om/fa q/FAQ 199 (This link is being provi ded for infor cedrick martinez/ educfaith rai purpo ses only. ) Not Available [facility] [address] [place], [address], 04/01/2023 07:06:07 03/31/1904/01/2023 HEMOG LOBIN A1C hemoglobin A1C 5.3 %_of_ total _HGB <5.7 normal For the purpo se of screrafael alfredg for the prese nce of diabe kell: <5.7% Consi stent with the absen ce of diabe kell 5.7-6 .4% Consi stent with incre ased risk for diabe kell (pred iabet es) > or =6.5% Consi stent with diabe kell This assay resul t is consi stent with a decre ased risk of diabe kell. Curre ntly, no conse nsus exist s jaime fernandez use of hemog lobin A1c for diagn osis of diabe kell in child pilar. Accor ding to Ameri can Diabe kell Assoc iatio n (ADA) guide lines , hemog lobin A1c <7.0% repre sents optim al contr ol in non-p regna nt diabe tic patie nts. Diffe rent metri cs may apply to speci fic patie nt popul ation s. Stand ards of Medic al Care in Diabe kell(A DA). HbA1c perfo rmed on Abbot t platf orm. Not Available [facility] [address] [address] , [place], [address], 04/01/2023 07:06:08 12/06/1912/06/2023 COLOG UARD cologuard result reportable NEGATI VE negati ve normal NEGAT FÁTIMA TEST RESUL T. A negat fátima Colog uard resul t indic ates a low likel ihood that a color ectal cance r (CRC) or advan andrew adeno ma (sonali omato us polyp s with more advan andrew pre-m align ant featu res) is prese nt. The [facility] e that a perso n with a negat fátima Colog uard test has a color ectal cance r is less than 1 in 1500 (nega tive predi ctive value >99.9 %) or has an advan andrew adeno ma is less than 5.3% (nega tive predi ctive value 94.7% ). These data are based on a prosp ectiv e cross -sect ional study of ,00 0 indiv idual s at [facility] risk for color ectal cance r who were scree rhett with both Colog uard and colon oscop y. ([facility]. et al, N Engl J Med 2014; 370(1 4):12 86-12 97) The zainab l value (refe rence range ) for this assay is negat fátima. COLOG UARD RE-SC REENI NG RECOM MENDA TION: Perio dic color ectal cance r scree ernesto is an impor tant part of preve ntive healt hcare for asymp tomat ic indiv idual s at [place] [facility] risk for color ectal cance r. Follo wing a negat fátima Colog uard resul t, the Ameri can Cance r Socie ty and U.S. Multi -Soci ety Task Force scree ernesto guide lines recom mend a Colog uard re-sc reeni ng inter allyson of 3 years . Refer ences : Ameri can Cance r Socie ty Guide line for Color ectal Cance r Scree ernesto: https ://maksim w.can cer.o rg/ca ncer/ colon -rect al-ca ncer/ detec tion- diagn osis- stagi ng/ac s-rec ommen datio ns.ht ml.; Elio MARQUEZ, Roxanne vides CR, Lisa JayK, Color ectal Cance r Scree ernesto: Recom menda tions for Physi cians and Patie nts from the U.S. Multi -Soci ety Task Force on Color ectal Cance r Screrafael alfredg Am Pierre adams y 2017; 112:1 016-1 030. TEST DESCR IPTIO N: [place] site algor ithmi c mendel sis of stool DNA-b ioyumiko celestin with hemog lobin immun oassa y. Quant itati ve value s of indiv idual bioma rkers are not repor table and are not assoc iated with indiv idual bioma rker resul t refer ence range s. Colog uard is inten ded for color ectal cance r scree ernesto of adult s of eithe r sex, 45 years or older , who are at [facility] for color ectal cance r (CRC) . Colog uard has been appro ally for use by the U.S. FDA. The perfo rmanc e of Colog uard was estab lishe d in a cross secti onal study of [facility] adult s aged 50-84 . Colog uard perfo rmanc e in patie nts ages 45 to 49 years was estim ated by sub-g roup mendel sis of near- age group s. Colon oscop ies perfo rmed for a posit fátima resul t may find as the most clini gibson signi fican t lesio n: color ectal cance r [4.0% ], advan andrew adeno ma (incl uding sessi le jimmy christy polyp s great er than or equal to 1cm diame ter) [20%] or non- advan andrew adeno ma [31%] ; or no color ectal neopl chetna [45%] . These estim ates are deriv ed from a prosp ectiv e cross -sect ional scree ernesto study of 10,00 0 indiv idual s at [facility] risk for color ectal cance r who were scree rhett with both Colog uard and colon oscop y. (Jose Maria Aguilar al, N Engl J Med 2014; 370(1 4):12 86-12 97.) Colog uard may produ ce a false negat fátima or false posit fátima resul t (no color ectal cance r or preca ncero us polyp prese nt at colon oscop y follo w up). A negat fátima Colog uard test resul t does not guara ntee the absen ce of CRC or advan andrew adeno ma (pre- cance r). The curre nt Colog uard scree ernesto inter allyson is every 3 years . (Amer ican Cance r Socie ty and U.S. Multi -Soci ety Task Force ). Colog uard perfo rmanc e data in a ,00 0 patie nt pivot al study using colon oscop y as the refer ence metho d can be acces sed at the follo wing locat ion: www.e xactl abs.c om/re ghulam . Addit ional descr iptio n of the Colog uard test proce ss, warni ngs and preca ution s can be found at www.c deonu boy.c om. Not Available [email or web address] (Cologuard Orders Only) [address], [place], [address], 12/09/2023 10:50:45 07/12/19 25 07/12/2024 LIPID PANEL , STAND BOY cholesterol, total 187 mg/dL <200 normal Not Available [facility] [address] [address] [place], [address], 07/12/2024 03:23:34 07/12/19 25 07/12/2024 LIPID PANEL , STAND BOY HDL cholesterol 59 mg/dL > or = 50 normal Not Available [facility] [address] [address] [place], [address], 07/12/2024 03:23:34 07/12/19 25 07/12/2024 LIPID PANEL , STAND BOY triglyceride s 82 mg/dL <150 normal Not Available [facility] [address] [address] [place], [address], 07/12/2024 03:23:34 07/12/19 25 07/12/2024 LIPID PANEL , STAND BOY LDL-choleste rol 111 mg/dL _(risa c) high Refer ence range : <100 Paulo able range <100 mg/dL for prima ry preve ntion ; <70 mg/dL for patie nts with CHD or diabe tic patie nts with > or = 2 CHD risk facto rs. LDL-C is now calcu lated using the Rhonda n-Hop kins calcu melodymichael n, which is a valid ated novel metho d provi ding yang r accur acy than the Fried ludwin equat ion in the estim ation of LDL-C . Rhonda sharma SS et al. EMILI. 2013; 310(1 9): 2061- 2068 (http ://ed ucati on.AutoMoneyBack. PayTouch/f aq/FA Q164) Not Available [facility] [address] [address] [place], [address], 07/12/2024 03:23:34 07/12/19 25 07/12/2024 LIPID PANEL , STAND BOY chol/HDLC ratio 3.2 (calc ) <5.0 normal Not Available [facility] [address] [address] [address], [place], [address], 07/12/2024 03:23:34 07/12/1907/12/2024 LIPID PANEL , STAND BOY non HDL cholesterol 128 mg/dL _(risa c) <130 normal For patie nts with diabe kell plus 1 major ASCVD risk facto r, treat ing to a non-H DL-C goal of <100 mg/dL (LDL- C of <70 mg/dL ) is consi mary annd a simran padron optio n. Not Available [facility] [address] [address] [place], [address], 07/12/2024 03:23:34 07/12/1907/12/2024 COMPR EHENS FÁTIMA METAB OLIC PANEL glucose 90 mg/dL 65-99 normal Fasti ng refer ence inter allyson Not Available [facility] [address] [address] [place], [address], 07/12/2024 03:23:36 07/12/19 25 07/12/2024 COMPR EHENS FÁTIMA METAB OLIC PANEL urea nitrogen (BUN) 15 mg/dL 7-25 normal Not Available [address], [address], 07/12/2024 03:23:36 07/12/19 25 07/12/2024 COMPR EHENS FÁTIMA METAB OLIC PANEL creatinine 0.85 mg/dL 0.50-1 .05 normal Not Available [address], [address], 07/12/2024 03:23:36 07/12/19 25 07/12/2024 COMPR EHENS FÁTIMA METAB OLIC PANEL eGFR 74 mL/mi n/1.7 3m2 > or = 60 normal Not Available [address], [address], 07/12/2024 03:23:36 07/12/19 25 07/12/2024 COMPR EHENS FÁTIMA METAB OLIC PANEL BUN/creatini ne ratio SEE NOTE: (calc ) 6-22 Not Repor christy: BUN and Creat inine are withi n refer ence range . Not Available [address], [address], 07/12/2024 03:23:36 07/12/19 25 07/12/2024 COMPR EHENS FÁTIMA METAB OLIC PANEL sodium 140 mmol/ L 135-14 6 normal Not Available [address], [address], 07/12/2024 03:23:36 07/12/19 25 07/12/2024 COMPR EHENS FÁTIMA METAB OLIC PANEL potassium 4.4 mmol/ L 3.5-5. 3 normal Not Available [address], [address], 07/12/2024 03:23:36 07/12/19 25 07/12/2024 COMPR EHENS FÁTIMA METAB OLIC PANEL chloride 105 mmol/ L 98-110 normal Not Available [address], [address], 07/12/2024 03:23:36 07/12/19 25 07/12/2024 COMPR EHENS FÁTIMA METAB OLIC PANEL carbon dioxide 27 mmol/ L 20-32 normal Not Available [address], [address], 07/12/2024 03:23:36 07/12/19 25 07/12/2024 COMPR EHENS FÁTIMA METAB OLIC PANEL calcium 9.4 mg/dL 8.6-10 .4 normal Not Available [address], [address], 07/12/2024 03:23:36 07/12/19 25 07/12/2024 COMPR EHENS FÁTIMA METAB OLIC PANEL protein, total 6.7 g/dL 6.1-8. 1 normal Not Available [address], [address], 07/12/2024 03:23:36 07/12/19 25 07/12/2024 COMPR EHENS FÁTIMA METAB OLIC PANEL albumin 4.1 g/dL 3.6-5. 1 normal Not Available [address], [address], 07/12/2024 03:23:36 07/12/19 25 07/12/2024 COMPR EHENS FÁTIMA METAB OLIC PANEL globulin 2.6 g/dL_ (calc ) 1.9-3. 7 normal Not Available [address], [address], 07/12/2024 03:23:36 07/12/19 25 07/12/2024 COMPR EHENS FÁTIMA METAB OLIC PANEL albumin/glob ulin ratio 1.6 (calc ) 1.0-2. 5 normal Not Available [address] [place], [address], 07/12/2024 03:23:36 07/12/19 25 07/12/2024 COMPR EHENS FÁTIMA METAB OLIC PANEL bilirubin, total 0.8 mg/dL 0.2-1. 2 normal Not Available [address], [address], 07/12/2024 03:23:36 07/12/19 25 07/12/2024 COMPR EHENS FÁTIMA METAB OLIC PANEL alkaline phosphatase 72 U/L 37-153 normal Not Available [address], [address], 07/12/2024 03:23:36 07/12/19 25 07/12/2024 COMPR EHENS FÁTIMA METAB OLIC PANEL AST 17 U/L 10-35 normal Not Available [address], [address], 07/12/2024 03:23:36 07/12/19 25 07/12/2024 COMPR EHENS FÁTIMA METAB OLIC PANEL ALT 11 U/L 6-29 normal Not Available [address], [address], 07/12/2024 03:23:36 07/12/19 25 07/12/2024 CBC (INCL UDES DIFF/ PLT) white blood cell count 5.1 thous and/u L 3.8-10 .8 normal Not Available [address], [address], 07/12/2024 03:23:37 07/12/19 25 07/12/2024 CBC (INCL UDES DIFF/ PLT) red blood cell count 4.76 yumiko on/uL 3.80-5 .10 normal Not Available [address], [address], 07/12/2024 03:23:37 07/12/19 25 07/12/2024 CBC (INCL UDES DIFF/ PLT) hemoglobin 14.0 g/dL 11.7-1 5.5 normal Not Available [address], [address], 07/12/2024 03:23:37 07/12/1907/12/2024 CBC (INCL UDES DIFF/ PLT) hematocrit 42.8 % 35.0-4 5.0 normal Not Available [facility] [address], [address], 07/12/2024 03:23:37 07/12/1907/12/2024 CBC (INCL UDES DIFF/ PLT) MCV 89.9 fL 80.0-1 00.0 normal Not Available [address], [address], 07/12/2024 03:23:37 07/12/1907/12/2024 CBC (INCL UDES DIFF/ PLT) MCH 29.4 pg 27.0-3 3.0 normal Not Available [address], [address], 07/12/2024 03:23:37 07/12/1907/12/2024 CBC (INCL UDES DIFF/ PLT) MCHC 32.7 g/dL 32.0-3 6.0 normal For adult s, a sligh t decre ase in the calcu lated MCHC value (in the range of 30 to 32 g/dL) is most likel y not clini gibson signi fican t; jefferson er, it shoul d be inter prete d with cauti on in corre latio n with other red cell aileen eters and the patie nt's clini risa condi tion. Not Available [facility] [address], [address], 07/12/2024 03:23:37 07/12/1907/12/2024 CBC (INCL UDES DIFF/ PLT) RDW 12.6 % 11.0-1 5.0 normal Not Available [address], [address], 07/12/2024 03:23:37 07/12/19 25 07/12/2024 CBC (INCL UDES DIFF/ PLT) platelet count 278 thous and/u L 140-40 0 normal Not Available [address], [address], 07/12/2024 03:23:37 07/12/19 25 07/12/2024 CBC (INCL UDES DIFF/ PLT) MPV 10.7 fL 7.5-12 .5 normal Not Available [address], [address], 07/12/2024 03:23:37 07/12/19 25 07/12/2024 CBC (INCL UDES DIFF/ PLT) absolute neutrophils 3152 cells /uL 1500-7 800 normal Not Available [address], [address], 07/12/2024 03:23:37 07/12/19 25 07/12/2024 CBC (INCL UDES DIFF/ PLT) absolute lymphocytes 1301 cells /uL 850-39 00 normal Not Available [address], [address], 07/12/2024 03:23:37 07/12/19 25 07/12/2024 CBC (INCL UDES DIFF/ PLT) absolute monocytes 444 cells /uL 200-95 0 normal Not Available [address], [address], 07/12/2024 03:23:37 07/12/19 25 07/12/2024 CBC (INCL UDES DIFF/ PLT) absolute eosinophils 143 cells /uL 15-500 normal Not Available [address], [address], 07/12/2024 03:23:37 07/12/19 25 07/12/2024 CBC (INCL UDES DIFF/ PLT) absolute basophils 61 cells /uL 0-200 normal Not Available [address], [address], 07/12/2024 03:23:37 07/12/19 25 07/12/2024 CBC (INCL UDES DIFF/ PLT) neutrophils 61.8 % normal Not Available [address], [address], 07/12/2024 03:23:37 07/12/19 25 07/12/2024 CBC (INCL UDES DIFF/ PLT) lymphocytes 25.5 % normal Not Available [address], [address], 07/12/2024 03:23:37 07/12/19 25 07/12/2024 CBC (INCL UDES DIFF/ PLT) monocytes 8.7 % normal Not Available [address], [address], 07/12/2024 03:23:37 07/12/19 25 07/12/2024 CBC (INCL UDES DIFF/ PLT) eosinophils 2.8 % normal Not Available [address], [address], 07/12/2024 03:23:37 07/12/19 25 07/12/2024 CBC (INCL UDES DIFF/ PLT) basophils 1.2 % normal Not Available [address], [address], 07/12/2024 03:23:37 07/12/1907/12/2024 VITAM IN D,25- OH,TO AZIZA,I A vitamin D,25-oh,tota l,ia 73 NG/mL 30-100 normal Vitam in D Statu s 25-OH Vitam in D: Defic iency : <20 ng/mL Insuf ficie ncy: 20 - 29 ng/mL Optim al: > or = 30 ng/mL For 25-OH Vitam in D testi ng on patie nts on D2-restrepo pplem entat ion and patie nts for whom quant itati on of D2 and D3 fract ions is requi red, the [employer] Ass[employer] eD(TM ) 25-OH VIT D, (D2,D 3), LC/MS /MS is recom wing d: order code 05017 (flex ents >2yrs ). See Note 1 Note 1 For addit ional infor gina lanza e refer to http: //[facility] vale spencerQue stDia gnost ics.c om/fa q/FAQ 199 (This link is being provi ded for infor cedrick martinez/ educfaith rai purpo ses only. ) Not Available [facility] [address] [address] [place], [address], 07/12/2024 03:23:38 07/12/19 25 07/12/2024 TSH W/REF PHILIPP TO FT4 TSH w/reflex to FT4 1.71 mIU/L 0.40-4 .50 normal Not Available [facility] [address] [address] [place], [address], 07/12/2024 03:23:39 05/20/19 23 05/19/2022 MAMMO , scree ernesto, digit al, bilat eral No observ ation record ed. [email or web address] [facility] [address], [place], [address], 05/27/2022 09:36:26 05/21/19 23 05/20/2022 MRI, abdom en + pelvi s, w/wo contr ast No observ ation record ed. [email or web address] [facility] [address], [place], [address], 05/20/2022 14:29:41 05/22/19 23 05/20/2022 MR, chola ngiop ancre atogr am, w/ contr ast No observ ation record ed. [address], [place], [address], 05/25/2022 09:23:13 06/11/19 24 06/11/2023 MR, dom montero ancre atogr am, w/ contr ast No observ ation record ed. [address], [place], [address], 07/23/2023 15:19:52 06/11/19 24 06/11/2023 MR, dom rutledgeiop ancre atogr am, w/wo contr ast No observ ation record ed. [address], [place], [address], 07/23/2023 15:20:10 08/03/19 24 08/03/2023 MAMMO , scree ernesto, digit al, bilat eral No observ ation record ed. [facility] [address], [place], [address], 09/17/2023 14:54:31 11/16/19 24 11/16/2023 DEXA No observ ation record ed. [address] [facility], [place], [address], 11/17/2023 15:38:41 11/16/19 24 11/16/2023 DEXA No observ ation record ed. [address], [place], [address], 11/17/2023 15:38:41 Result Notes None recorded. Problems Name Problem SNOMED Code Status Onset Date Resolution Date Notes Provider Name and Address Organization Details Recorded Time Cyst of pancreas 93296126 Active 2019 Alexandra Rosales APRN [address], [place], [address], [facility] [employer] [facility] 4 12:51:56 Osteopenia 276785587 Active 2021 DEXA 06/27 Alexandra Rosales APRN [address], [place], [address], [employer] 4 12:51:48 Hypothyroidism 50472272 Active 2019 Alexandra Rosales APRN [address], [place], [address], [email or web address] [facility] 4 12:51:45 Hyperlipidemia 24551943 Active 2019 Alexandra Rosales APRN [address], [place], [address], [email or web address] 4 12:51:43 Vitamin D deficiency 46506172 Active 2023 Alexandra Rosales APRN [address], [place], [address], [email or web address] 4 12:51:51 Adult health examination Active 2023 Jami Bryan MD [address], [place], [address], [email or web address] 4 07:58:34 Allergic rhinitis 69996993 Active 2023 Alexandra Rosales APRN [address], [place], [address], [email or web address] [facility] 4 12:51:58 Vasovagal syncope 302383944 Active 2023 Alexandra Rosales APRN [address], [place], [address], [email or web address] 4 12:51:53 Chronic constipation 935912313 Active 2023 Alexandra Rosales APRN [address], [place], [address], [employer] 4 11:21:50 Depressive disorder 90426976 Active 2023 Alexandra Rosales APRN [address], [place], [address], [employer] [facility] [employer] 4 11:24:32 Restless legs 32248346 Active 2023 Alexandra MtzJACKIE yu [address], [place], [address], [employer] 4 08:57:07 Prediabetes 588734024 Active 2023 Alexandra Rosales APRN [address], [place], [address], [employer] 4 14:44:15 Problem Notes None recorded. Procedures Surgical History Date Name Laterality Status Provider Name and Address Organization Details Recorded Time 05/19/19 25 Medicare Wellness CPT Code, subsequent completed Alexandra MtzJACKIE yu [address], [place], [address], [employer] 05/18/2024 11:13:03 07/06/19 24 Date of Last Mammogram completed Alexandra Rosales APRN [address], [place], [address], [employer] 05/18/2024 11:05:19 04/08/19 24 Medicare Wellness CPT Code, subsequent completed Jcarlos Werner RN [place] [employer] [facility] [employer] 04/08/2023 11:30:03 Biopsy completed Not Available [facility] 03/2022 22:05:27 extraction of cataract completed Annalisa Michaels MA [employer] [facility] [employer] 11/18/2023 11:07:11 colonoscopy completed Annalisa Michaels MA [employer] [facility] [employer] 11/18/2023 11:07:50 Imaging Results None recorded. Procedure Notes None recorded. Medical Equipment None Reported. Allergies Allergen ID Allergen Name Allergen Category Reaction Reaction Severity Criticality Documentation Date Start Date Code Code System Note Provider Name and Address Organization Details Recorded Time 91844 Substance with sulfonami de structure and antibacte rial mechanism of action (substanc e) medicatio n Not available Not available Not available 05/06/2022 49509 8003 SNOMED hives Not Available [facility] 3 22:07:20 Medications Name Sig Start Date Stop Date Status Note LastModified by Organization Details LastModified Time amoxicillin 500 mg capsule TAKE 2 CAPSULES BY MOUTH NOW, THEN TAKE 1 CAPSULE EVERY 8 HOURS UNTIL FINISHED 05/18 completed Not Available Not Available Not Available doxycycline hyclate 100 mg capsule active Not Available Not Available N ot Available hydrocodone 5 mg-acetamin ophen 325 mg tablet TAKE ONE TABLET BY MOUTH EVERY 6 TO 8 HOURS NEEDED FOR PAIN 05/18 completed Not Available Not Available Not Available ondansetron HCl 8 mg tablet Take 1 tablet 3 times a day by oral route as needed. active Not Available Not Available No t Available fexofenadin e 180 mg tablet Take 1 tablet every day by oral route. active Not Available Not Available No t Available ciprofloxac in 500 mg tablet TAKE 1 TABLET BY MOUTH TWICE DAILY 08/13 completed Not Available Not Available Not Available amoxicillin 875 mg tablet TAKE 1 TABLET BY MOUTH TWICE A DAY UNTIL GONE 05/18 completed Not Available Not Available Not Available prednisolon e acetate 1 % eye drops,suspe nsion 11/17 completed Not Available Not Available Not Available magnesium oxide 400 mg (241.3 mg magnesium) tablet Take 0.5 tablets every day by oral route as directed. 2024 active Not Available Not Available Not Avai lable ciprofloxac in 0.3 % eye drops 11/17 completed Not Available Not Available Not Available diclofenac 0.1 % eye drops 11/17 completed Not Available Not Available Not Available triamcinolo ne acetonide 0.1 % topical ointment 11/17 completed Not Available Not Available Not Available Synthroid 75 mcg tablet 1 po qday 2024 active Not Available Not Available Not Avai lable docusate sodium 100 mg capsule Take 1 capsule every day by oral route, for constipat ion. 05/18 completed Not Available Not Available Not Available gabapentin 300 mg capsule 04/02 completed Not Available Not Available Not Available hydroxyzine HCl 25 mg tablet 10/24 completed Not Available Not Available Not Available mupirocin 2 % topical ointment active Not Available Not Available Not Available triamcinolo ne acetonide 0.1 % lotion APPLY TO ITCHY AREAS ON SCALP AND ABDOMEN TWICE DAILY NEEDED active Not Available Not Available No t Available ondansetron 4 mg disintegrat ing tablet 02/12 completed Not Available Not Available Not Available cholecalcif el (vitamin D3) 125 mcg (5,000 unit) capsule 1 po qday 03/27 completed Not Available Not Available Not Available loratadine 10 mg tablet Take 1 tablet every day by oral route. 2024 active Not Available Not Available Not Avai lable amoxicillin 875 mg-potassiu m clavulanate 125 mg tablet 04/02 completed Not Available Not Available Not Available escitalopra m 10 mg tablet Take 1 tablet every day by oral route. 2024 active Not Available Not Available Not Avai lable escitalopra m 20 mg tablet Take 1 tablet every day by oral route. 11/17 completed Not Available Not Available Not Available rosuvastati n 10 mg tablet Take 1 tablet every day by oral route. 2024 active Not Available Not Available Not Avai lable melatonin 1 mg tablet 1 po qhs 02/12 completed Not Available Not Available Not Available chlorhexidi ne gluconate 0.12 % mouthwash USE 1 CAPFUL TO RINSE BY MOUTH MORNING AND NIGHT. DO NOT SWALLOW 05/18 completed Not Available Not Available Not Available melatonin 11/17 completed Not Available Not Available Not Available calcium active Not Available Not Avail able Not Available Benadryl 2019 active Not Available Not Available Not Avai lable Vitamin D3 2000 IU daily 2020 active Not Available Not Available Not Avai lable Metamucil active Not Available Not Meme ilable Not Available multivitami n active Not Available Not Available Not Available Vitamin D 2,000 unit capsule Take 1 capsule every day by oral route. 11/17 completed Not Available Not Available Not Available melatonin 5 mg capsule Take 1 capsule every day by oral route at bedtime. active Not Available Not Available No t Available magnesium citrate 100 mg tablet Take 2 tablets every day by oral route as directed, for restless legs. 05/13 completed Not Available Not Available Not Available Flonase Allergy Relief 50 mcg/actuati on nasal spray,suspe nsion 2 sprays IEN daily 2024 active Not Available Not Available Not Avai lable Afluria Quad 60 mcg (15 mcg x 4)/0.5 mL intramuscul ar susp. 11/17 completed Not Available Not Available Not Available COVID-19 test specimen collection TEST DIRECTED TODAY 04/02 completed Not Available Not Available Not Available Vitals Date Recorded Body mass index (BMI) Body height Oxygen saturation Oxygen saturation in Arterial blood by Pulse oximetry Heart rate Body temperature Body weight Systolic blood pressure Diastolic blood pressure Provider Name and Address Organization Details Last Updated DateTime 3 25.5 kg/m2 165.1 cm 100 % 100 % 50 /min 97.6 [degF] 42545.6 3 g 142 mm[Hg] 78 mm[Hg] Not Available [employer] 3 22:05:35 Date Recorded Body weight Body temperature Heart rate Oxygen saturation Oxygen saturation in Arterial blood by Pulse oximetry Systolic blood pressure Diastolic blood pressure Provider Name and Address Organization Details Last Updated DateTime 4 46015.6 3 g 98 [degF] 52 /min 98 % 98 % 138 mm[Hg] 82 mm[Hg] Jcarlos Werner RN [employer] 4 11:32:13 Date Recorded Body height Body mass index (BMI) Body weight Body temperature Heart rate Oxygen saturation Oxygen saturation in Arterial blood by Pulse oximetry Systolic blood pressure Diastolic blood pressure Provider Name and Address Organization Details Last Updated DateTime 5 160.02 cm 26.9 kg/m2 69098.0 4 g 98 [degF] 50 /min 97 % 97 % 126 mm[Hg] 72 mm[Hg] Annalisa Michaels MA [employer] 5 10:56:33 Date Recorded Body height Body mass index (BMI) Body weight Body temperature Heart rate Respiratory rate Oxygen saturation Oxygen saturation in Arterial blood by Pulse oximetry Systolic blood pressure Diastolic blood pressure Provider Name and Address Organization Details Last Updated DateTime 5 160.02 cm 26.9 kg/m2 44824.0 4 g 98 [degF] 99 /min 16 /min 100 % 100 % 130 mm[Hg] 84 mm[Hg] Alley Walsh [employer] 5 10:38:58 Date Recorded Body height Body mass index (BMI) Body weight Body temperature Heart rate Oxygen saturation Oxygen saturation in Arterial blood by Pulse oximetry Systolic blood pressure Diastolic blood pressure Provider Name and Address Organization Details Last Updated DateTime 4 160.02 cm 28 kg/m2 91656.5 9 g 97.7 [degF] 50 /min 98 % 98 % 130 mm[Hg] 78 mm[Hg] Annalisa Michaels MA [facility] [employer] [facility] 4 11:03:03 Social History Question Answer Notes LastModified by Organization Details LastModified Time Tobacco Smoking Status Former Smoker Jc ryan [facility] [employer] [facility] 04/08/2023 11:27:08 Do You Have An Advance Directive? Yes Patient Has A Living Will. [id number] Information not available 05/06/2022 Are You Blind Or Do You Have Difficulty Seeing? No Information not available 04/08/2023 What Is Your Level Of Caffeine Consumption? Moderate [id number] Information not available 05/06/2022 In The 14 Days Before Symptom Onset, Have You Had Close Contact With A Laboratory-confi rmed COVID-19 While That Case Was Ill? No Information not available 11/18/2023 In The 14 Days Before Symptom Onset, Have You Had Close Contact With A Person Who Is Under Investigation For COVID-19 While That Person Was Ill? No Information not available 11/18/2023 Are You Deaf Or Do You Have Serious Difficulty Hearing? No Information not available 04/08/2023 What Type Of Diet Are You Following? REGULAR [id number] Information not available 05/06/2022 Have There Been Any Changes To Your Family Or Social Situation? No Information not available 04/08/2023 When Did You Quit Smoking? 16+yearssincelastc igarette Information not available 04/08/2023 Are There Any Guns Present In Your Home? Yes Information not available 04/08/2023 Do You Use Insect Repellent Routinely? No Information not available 04/08/2023 Where Do You Live? SingleLevelHouse Information not available 04/08/2023 What Was The Date Of Your Most Recent Tobacco Screening? 05/18/2024 Information not available 05/18/2024 How Many Children Do You Have? 2 Information not available 11/18/2023 What Is Your Current Pack Years? 20-29packyears Information not available 04/08/2023 What Is Your Relationship Status? Information not available 11/18/2023 Do You Use Your Seat Belt Or Car Seat Routinely? Yes Information not available 04/08/2023 Do You Have Smoke And Carbon Monoxide Detectors In Your Home? Yes Information not available 04/08/2023 Are You Passively Exposed To Smoke? No Information not available 04/08/2023 Are There Any Smokers In Your House? No Information not available 04/08/2023 How Much Tobacco Do You Smoke? 1 PPD Information not available 11/18/2023 Do You Use Sunscreen Routinely? Yes Information not available 04/08/2023 Has Tobacco Cessation Counseling Been Provided? No N/A Information not available 04/08/2023 How Many Years Have You Smoked Tobacco? 20 Information not available 04/08/2023 Have You Recently Traveled Abroad? No Information not available 11/18/2023 Do You Have Difficulty Walking Or Climbing Stairs? No Information not available 04/08/2023 Do You Have Any Dietary Restrictions? No Information not available 04/08/2023 Sex: Unknown Functional Status Question Answer Note LastModified by Organizat ion Details LastModified Time Do you use any illicit or recreational drugs? No Information not available 04/08/2023 Do you or have you ever used any other forms of tobacco or nicotine? No Information not available 04/08/2023 What is your level of alcohol consumption? None [id number] Information not available 05/06/2022 Do you or have you ever used smokeless tobacco? Never used smokeless tobacco [id number] Information not available 05/06/2022 Are you currently employed? No Retired Information not available 11/18/2023 Do you have transportation difficulties? No Information not available 04/08/2023 Are you able to walk? YESWOREST Information not available 04/08/2023 Do you have difficulty doing errands alone? No Information not available 04/08/2023 Are you able to care for yourself? Yes Information n ot available 04/08/2023 Do you have difficulty dressing or bathing? No Information not available 04/08/2023 Do you or have you ever used e-cigarettes or vape? Never used electronic cigarettes Information not available 04/08/2023 What is your exercise level? Moderate Information not available 05/18/2024 Mental Status Question Answer Note LastModified by Organizat ion Details LastModified Time Do you feel stressed (tense, restless, nervous, or anxious, or unable to sleep at night)? [id number] Information not available 04/08/2023 Do you have difficulty concentrating, remembering or making decisions? No Information no t available 04/08/2023 Family History Relationship Description Onset Age of this Age Resolved Age Notes LastModified by Organization Details LastModified Time Father Myocardial infarction [id number] Not available 05/06/2022 22:05:27 Mother Malignant neoplasm of ovary frivastorres Not available 10:34:09 Medical History Condition Response ALLERGIES/HAYFEVER Y OSTEOPOROSIS Y ANXIETY DISORDER Y SLEEP DISORDER Y HIGH CHOLESTEROL / HYPERLIPIDEMIA Y Gynecological History Statement/Question Response How many live births 2 Date of Last Mammogram 12/05/2020 Date of Last Colonoscopy Date of Last Mammogram 07/06/2023 Most Recent Bone Density Date of LMP Sexually Active? Y STIs/STDs N HPV Vaccine N Date of Last Pap Current Control Method Menopause N Obstetrics History GPAL:G 3 P 3 0 0 3 Type Value Multiple Births 0 Full Term 3 Induced 0 Spontaneous 0 Premature 0 Living 3 Ectopics 0 Total 3 Immunizations Vaccine Type Date Status Note Provider Nam e and Address Organization Details Recorded Time influenza, unspecified formulation 2 completed Not Available [facility] 05/06/2022 22:07:10 SARS-COV-2 (COVID-19) vaccine, UNSPECIFIED 1 completed Not Available [facility] 05/06/2022 22:07:10 Influenza, high-dose, quadrivalent, PF 0 completed Alexandra Rosales APRN [address], [address], [place], [address], [employer] [facility] 11/17/2023 12:51:16 Influenza, adjuvanted, quadrivalent, PF 2 completed Alexandra Rosales APRN [address], [address], [place], [address], [employer] [facility] 11/17/2023 12:51:16 COVID-19 vaccine, vector-nr, rS-Ad26, PF, 0.5 mL 1 completed Alexandra Rosales APRN [address], [place], [address], [employer] [facility] 11/17/2023 12:51:16 Influenza, split virus, trivalent, preservative 4 completed Alexandra Rosales APRN [address], [place], [address], [employer] [facility] 11/17/2023 12:51:16 Influenza, split virus, trivalent, preservative 3 completed Alexandra Rosales APRN [address], [place], [address], [employer] 11/17/2023 12:51:16 Past Encounters Encounter ID Performer Location Encounter Start Date Encounter Closed Date Diagnosis/Indication Diagnosis SNOMED-CT Code Diagnosis ICD10 Code Diagnosis Note [id number] FAITH Mustafa [facility] [address] [place] [address] 08/21/2020 00:00:00 08/21/2020 17:16:25 [id number] Jami Bryan MD [facility] [address] [place] [address] 04/02/2021 00:00:00 04/07/2021 14:14:51 [id number] Jami Bryan MD [facility] Primary Care [place] [facility] [address] [facility] [address] [place], [place] [address] 05/14/2021 00:00:00 06/04/2021 10:19:30 [id number] Jami Bryan MD [facility] Primary Care [place] [address] [facility] [address] [place], [place] [address] 08/13/2021 00:00:00 08/13/2021 15:15:28 [id number] Jami Bryan MD [facility] Primary Care [place] [address] [facility] [address] [place], [place] [address] 02/12/2022 00:00:00 02/12/2022 14:18:22 [id number] Jami Bryan MD [facility] Primary Care [place] [address] [facility] [address] [place], [place] [address] 04/06/2022 00:00:00 04/07/2022 10:03:28 [id number] Jami Bryan MD [facility] Primary Care [place] [address] [facility] [address] [place], [place] [address] 04/08/2023 11:26:00 04/08/2023 12:07:07 Adult health examination 698590626 Z00.00 Has completed shingles vaccine series Has gotten pneumovax 23, can get prevnar 13 anytime Gets yearly flu vaccine DEXA repeat due 2023 osteopenia Will get mammogram Repeat colonoscop y at age 69 Remain nonsmoker Screening mammography 24 493336 Z12.31 Postmenopausal state 764 91593 Z78.0 Hyperlipidemia 87344948 E78.5 improvedco ntinue rosuvastat in 10 mg 2x per week Allergic rhinitis 434630 04 J30.9 stablerefi ll given Vasovagal syncope 621018 005 R55 occurred with constipate d bmavoid sitting on toilet for more than 5 minutesinc rease fiber intakeok for miralax daily prn Hypothyroidism 12847610 E03.9 in excellent controlcon tinue synthroid 75 mcg daily [id number] Eulogio cuevas MD [facility] Med [facility] [address] [facility], [facility] [address] [place] [address] 11/18/2023 10:45:08 11/18/2023 11:41:54 Screening for malignant neoplasm of colon 903727335 Z12.11 Chronic constipation 236 653131 K59.09 Hyperlipidemia 94630045 E78.5 Hypothyroidism 63453738 E03.9 Vitamin D deficiency 347 50977 E55.9 Allergic rhinitis 326918 04 J30.9 Depressive disorder 3548 9007 F32.A [id number] Eulogio cuevas MD [facility] Internal Med [facility] [address] [facility], [facility] [address] [place] [address] 05/18/2024 10:47:30 05/18/2024 11:27:19 Adult health examination 342195339 Z00.00 Screening for disorder 671011675 Z13.9 Depressive disorder 3548 9007 F32.A Allergic rhinitis 780062 04 J30.9 Restless legs 69397796 G 25.81 Hyperlipidemia 85230986 E78.5 Hypothyroidism 20533130 E03.9 [id number] Eulogio cuevas MD [facility] [address] [place] [address] 07/03/2024 10:33:05 07/03/2024 11:26:05 Screening - NAD 744001601 Z13.9 C-scope: 12/06/2023 : Cologuard Neg Mammogram: 08/03/2023 : neg DEXA: 11/16/2023 : Low bone mass WWE: Get this if not done Get yearly flu shot, do tdap, get shingrix vaccineGet COVID 19 vaccineCan do prevnar 20 vaccine RTC in 3 months, do labs Depressive disorder 3548 9007 F32.A On lexapro 10mg daily, does wellNot suicidal or homicidalD eclined any psychiatry referral Hyperlipidemia 76114824 E78.5 On rosuvastat in 10mg 2 per weekGet labs Hypothyroidism 52994824 E03.9 On synthroid 75mcgs dailyGet labs Vitamin D deficiency 347 12374 E55.9 Gynecologi c examination 55022001 Z01.419 Allergic rhinitis 442837 04 J30.9 On flonaseOn claritin Health Concerns Section Related Observation LastModified by Organization Detai ls LastModified Time None Recorded Concern Status LastModified by Organization Details LastModified Time None Recorded Advance Directives Directive Y: Patient has a living will . Payers Encounter Date Sequence Insurance Name Policy Number Policy Watkins Covered Member ID Watkins Member ID Guarantor Name 04/08/2023 1 [facility] (MEDICARE REPLACEMENT/A DVANTAGE - HMO) [id number] Veena A Gruhn [id number] Veena A Gruhn 04/08/2023 2 FOR LIFE () Daniele Gruhn [id number] Veena A Gruhn 11/18/2023 1 [facility] (MEDICARE REPLACEMENT/A DVANTAGE - HMO) [id number] Veena A Gruhn [id number] Veena A Gruhn 11/18/2023 2 FOR LIFE () Daniele Gruhn [id number] Veena A Gruhn 05/18/2024 1 [facility] (MEDICARE REPLACEMENT/A DVANTAGE - HMO) [id number] Veena A Gruhn [id number] Veena A Gruhn 05/18/2024 2 FOR LIFE () Daniele Gruhn [id number] Veena A Gruhn 07/03/2024 1 [facility] (MEDICARE REPLACEMENT/A DVANTAGE - HMO) [id number] Veena A Gruhn [id number] Veena A Gruhn 07/03/2024 2 FOR LIFE () Daniele Gruhn [id number] Veena A Gruhn Notes Date Note Type Note Provider Name and Address Organization Details Recorded Time 4 text/html Here for wellness exam Has constipation-does take magnesium and has miralax at home she uses at time two times now had an episode of vomiting while having a bowel movement-may have been on the toilet for a longer period and may have been constipated. [place] shaky, sweaty when it happened. Jami Bryan MD [address] [place] [address], [facility] [address], [place], [address], [place] [employer] 04/08/2023 12:08:37 4 text/html Veena presents today to establish care and medication refills. Dexa scan shows osteopenia. She states that she walks several times per week. She is also on supplements to increase/maintain bone density. Her mammogram is negative for malignancy. 04/08/2023Here for wellness exam Has constipation-does take magnesium and has miralax at home she uses at time two times now had an episode of vomiting while having a bowel movement-may have been on the toilet for a longer period and may have been constipated. [place] shaky, sweaty when it happened. Alexandra Rosales APRN [address], [address], [place], [address], [employer] 11/18/2023 11:38:01 5 text/html Dara presents today for 6 month follow. She denies any illnesses or injuries since last visit. She denies any other changes. She is on calcium and vitamin D for osteopenia. She states that she is due to have her cholangiopancreatogram next month. 4Pjae presents today to establish care and medication refills. Dexa scan shows osteopenia. She states that she walks several times per week. She is also on supplements to increase/maintain bone density. Her mammogram is negative for malignancy. 04/08/2023Here for wellness exam Has constipation-does take magnesium and has miralax at home she uses at time two times now had an episode of vomiting while having a bowel movement-may have been on the toilet for a longer period and may have been constipated. [place] shaky, sweaty when it happened. Alexandra Rosales APRN [address], [place], [address], [employer] 05/18/2024 11:25:47 OBGyn Episode No OBEpisode recorded.
--- OUTSIDE RECORDS SUMMARY | 2024-08-02 06:44 | XMS_ITS | Continuity of Care Document ---
Author Name [facility] Organization [facility] Care Team Providers Care Electrical Continuity Inspector Name Role Phone [facility] Unavailable Unavailable Problems Combined list of problems from Department of Defense and Veterans Affairs facilities. It does not include entries that were removed or entered in error. Problem Status Onset Date Problem Type Date of Resolution Comments Source visit for: administrative purpose Inactive Condition DoD VARICOSE VEINS WITH PAIN Active Condition Rx written for Jobst stockings. f/u prn. DoD Medications Combined list of outpatient medications from Department of Defense and Veterans Affairs facilities.Medications provided include 1) outpatient medications from the last 15 months, and 2) patient-reported medications. Medication Details Route Status Patient Instructions Prescription Expires Prescription Number Last Dispense Date Ordering Provider Order Date Order Qty Source amoxicillin 875 mg oral tablet 0 total refill(s ) Ordered 2019 No Facilit y Access amoxicillin 875 mg oral tablet 0 total refill(s ) Ordered 2019 No Facilit y Access amoxicillin -clavulanat e 875 mg-125 mg oral tablet 0 total refill(s ) Ordered 2019 No Facilit y Access cholecalcif el 5000 intl units (125 mcg) oral capsule cholecal ciferol 5000 intl units (125 mcg) oral capsule Start Date: 04/05/19 Status: Ordered Repeat number: 1 Ordered 2019 No Facilit y Access ciprofloxac in 0.3% eye drops [5mL] See Instruct ions, # 5 mL, 3 total refill(s ), Hard Stop Complet ed 02/16/2024 3 2023 5.0 Ambulat ory Pharmac y cromolyn 4% ophthalmic solution cromolyn 4% ophthalm ic solution Start Date: 12/15/18 Status: Ordered Repeat number: 1 Ordered 2019 No Facilit y Access diclofenac 0.1% eye drops [5mL] See Instruct ions, # 5 mL, 1 total refill(s ), Hard Stop Complet ed 02/16/2024 3 2023 5.0 Ambulat ory Pharmac y docusate sodium 100 mg capsule = 1 cap(s), Oral, Daily, # 90 EA, 1 total refill(s ), Hard Stop Oral (given by mouth) Ordered 11/17/2024 4 2023 90.0 Ambulat ory Pharmac y escitalopra m 10 mg tablet = 1 tab(s), Oral, Daily, # 90 EA, 1 total refill(s ), Soft Stop Oral (given by mouth) Ordered 5 2024 90.0 Ambulat ory Pharmac y escitalopra m 10 mg tablet = 1 tab(s), Oral, Daily, # 90 EA, 1 total refill(s ), Hard Stop Oral (given by mouth) Discont inued 08/01/2024 5 2024 90.0 Ambulat ory Pharmac y escitalopra m 20 mg oral tablet TAKE ONE TABLET DAILY WITH FOOD, # 90 EA, 3 total refill(s ), Acute Complet ed 09/22/2022 2 2022 90.0 Ambulat ory Pharmac y escitalopra m 20 mg oral tablet TAKE ONE TABLET DAILY WITH FOOD, # 90 EA, 3 total refill(s ), Acute Complet ed 03/10/2023 3 2023 90.0 Ambulat ory Pharmac y escitalopra m 20 mg tablet 20 mg, Oral, Daily, # 90 EA, 3 total refill(s ), Hard Stop Oral (given by mouth) Complet ed 08/25/2023 4 2023 90.0 Ambulat ory Pharmac y fluticasone 50 mcg/inh nasal spray fluticas one 50 mcg/inh nasal spray Start Date: 11/14/19 Status: Ordered Repeat number: 1 Ordered 2019 No Facilit y Access fluticasone 50 mcg/inh nasal spray [16g] See Instruct ions, # 48 g, 3 total refill(s ), Hard Stop Discont inued 11/19/2023 4 2023 48.0 Ambulat ory Pharmac y fluticasone 50 mcg/inh nasal spray [16g] 100 mcg, Nostril- Both, Daily, # 48 g, 3 total refill(s ), Hard Stop Nostri l-Both (into the nose) Ordered 11/17/2024 4 2023 48.0 Ambulat ory Pharmac y levothyroxi ne (Synthroid) 75 mcg tablet 75 mcg, Oral, Daily, # 90 EA, 3 total refill(s ), Hard Stop, JOE Oral (given by mouth) Discont inued 11/19/2023 4 2023 90.0 Ambulat ory Pharmac y levothyroxi ne (Synthroid) 75 mcg tablet See dose instruct ions in comments , # 90 EA, 1 total refill(s ), Acute Complet ed 12/14/2022 3 2022 90.0 Ambulat ory Pharmac y levothyroxi ne (Synthroid) 75 mcg tablet = 1 tab(s), Oral, Daily, # 90 EA, 1 total refill(s ), Soft Stop, JOE Oral (given by mouth) Ordered 5 2024 90.0 Ambulat ory Pharmac y levothyroxi ne (Synthroid) 75 mcg tablet = 1 tab(s), Oral, Daily, # 90 EA, 3 total refill(s ), Hard Stop, JOE Oral (given by mouth) Discont inued 08/01/2024 5 2024 90.0 Ambulat ory Pharmac y levothyroxi ne 75 mcg oral tablet levothyr oxine 75 mcg oral tablet Start Date: 03/21/19 Status: Ordered Repeat number: 1 Ordered 2019 No Facilit y Access loratadine 10 mg oral tablet loratadi ne 10 mg oral tablet Start Date: 03/21/19 Status: Ordered Repeat number: 1 Ordered 2019 No Facilit y Access loratadine 10 mg oral tablet TAKE ONE TABLET DAILY, # 90 EA, 3 total refill(s ), Acute Complet ed 06/08/2023 3 2023 90.0 Ambulat ory Pharmac y loratadine 10 mg tablet See Instruct ions, # 90 EA, 3 total refill(s ), Hard Stop Complet ed 04/07/2024 4 2024 90.0 Ambulat ory Pharmac y magnesium oxide 400 mg tablet See Instruct ions, # 45 EA, 3 total refill(s ), Hard Stop Discont inued 08/01/2024 5 2024 45.0 Ambulat ory Pharmac y magnesium oxide 400 mg tablet See Instruct ions, # 45 EA, 3 total refill(s ), Soft Stop Ordered 5 2024 45.0 Ambulat ory Pharmac y prednisoLON E acetate 1% eye drops (suspension ) [10mL] See Instruct ions, # 10 mL, 1 total refill(s ), Hard Stop Complet ed 02/16/2024 3 2023 10.0 Ambulat ory Pharmac y rosuvastati n 10 mg oral tablet rosuvast atin 10 mg oral tablet Start Date: 03/21/19 Status: Ordered Repeat number: 1 Ordered 2019 No Facilit y Access rosuvastati n 10 mg tablet = 1 tab(s), Oral, Daily, # 30 EA, 1 total refill(s ), Soft Stop Oral (given by mouth) Ordered 5 2024 30.0 Ambulat ory Pharmac y rosuvastati n 10 mg tablet See Instruct ions, # 24 EA, 4 total refill(s ), Hard Stop Discont inued 12/30/2023 4 2023 24.0 Ambulat ory Pharmac y rosuvastati n 10 mg tablet See dose instruct ions in comments , # 24 EA, 4 total refill(s ), Acute Complet ed 07/26/2023 3 2023 24.0 Ambulat ory Pharmac y rosuvastati n 10 mg tablet See Instruct ions, Oral, # 24 EA, 4 total refill(s ), Hard Stop Oral (given by mouth) Discont inued 07/14/2024 5 2024 24.0 Ambulat ory Pharmac y triamcinolo ne 0.1% lotion [60mL] See Instruct ions, # 60 mL, 6 total refill(s ), Hard Stop Ordered 03/27/2025 5 2024 60.0 Ambulat ory Pharmac y Allergies, Adverse Reactions, Alerts Combined list of allergies from Department of Defense and Veterans Affairs facilities. It does not include entries that were removed or entered in error. Substance Category Reaction Severity Reaction type Status Date Reported Comments Source Sulfa (Sulfonamide Antibiotics) Drug allergy (disorder) Rash active 8 [facility] [place] [place] sulfonamides Propensity to adverse reactions to substance Rash Active 8 Unknown Organizat ion Immunizations Combined list of available immunizations from the Department of Defense and Veterans Affairs facilities. 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 Status Comments Source Influenza, injectable, quadrivalent, preservative free 1 2020 Unknown, Provider [id number] [facility] ([facility]) complet ed Influenza , injectabl e, quadrival ent, preservat peter free DoD zoster vaccine recombinant 1 2019 Unknown, Provider [id number] [employer] ([facility]) complet ed zoster vaccine recombina nt DoD Influenza, seasonal, injectable 1 2019 Unknown, Provider 141 Transcribed (TRS) complet ed Influenza , seasonal, injectabl e DoD pneumococcal polysaccharid e, 23 valent 2019 zzLef t Arm [id number] [employer] complet ed pneumococ risa polysacch aride, 23 valent 10/27/19 Given Ambulat ory Pharmac y pneumococcal polysaccharid e vaccine, 23 valent 1 2019 Unknown, Provider [id number] Merck (MSD) complet ed pneumococ risa polysacch aride vaccine, 23 valent DoD zoster vaccine recombinant 1 2019 Unknown, Provider [id number] [employer] ([facility]) complet ed zoster vaccine recombina nt DoD influenza, injectable, quadrivalent- pf 2017 [id number] 150 complet ed influenza , injectabl e, quadrival ent-pf 12/10/17 Given Ambulat ory Pharmac y Influenza, injectable, quadrivalent, preservative free 1 2017 Unknown, Provider [id number] 150 Transcribed (TRS) complet ed Influenza , injectabl e, quadrival ent, preservat peter free DoD tetanus, diphtheria, acellular pertu is 2017 zAngelito t Arm [id number] 115 [employer]Kli ne complet ed tetanus, diphtheri a, acellular pertussis 09/21/17 Given Ambulat ory Pharmac y tetanus toxoid, reduced diphtheria toxoid, and acellular pertu is vaccine, adsorbed 1 2017 Unknown, Provider [id number] 115 [employer] ([facility]) complet ed tetanus toxoid, reduced diphtheri a toxoid, and acellular pertussis vaccine, adsorbed DoD Encounters Combined list of: 1) Encounters from Department of Veterans Affairs facilities going backup to the last 18 months, not all VA inpatient encounters are included; 2) Encounters from the Department of Defense facilities going backup to 280 months. Location Location Details Encounter Type Encounter Number Reason For Visit Attending Provider ADM Date DC Date Status Disposition Source [address] [place] [address])(Fam radha Practice Non-GME FHI2) OUTPATIENT [id number] [facility] MARY Sanchez 12/17 Released w/o Limitations [address] [place] [address])(F amily Practic e Non-GME FHI2) [address] [place] [address])(Fam radha Med Tm B Non-AD BCC) TELE CONSULT [id number] Maureen Beckham cad omayrat EMILIA HARVEY 08/[address] [place] [address])(F amily Med Tm B Non-AD BCC) [address] [place] [address])(Sco tt Internal Medicine Tm) TELE CONSULT [id number] Notes Entered by: GUILLERMO COLLINS 24 Oct 2012 1124 ------- ------- ------- ------- -- Retro and new ref request /Chinedu/ BELL RILEY 10/[address] [place] [address] Tavo [facility])(S cott Interna l Medicin e Tm) [address] [place] [address])(War rior Op Med Cln Tm A Ad) OUTPATIENT [id number] Initial appt with PCM [id number] GORGE YA 03/04 Released w/o Limitations [address] [place] [address])(W arrior Op Med Cln Tm A Ad) [address] [place] [address])(War rior Op Med Cln Tm A Ad) OUTPATIENT [id number] f/u after blood work / GORGE YA 03/17 Released w/o Limitations [address] [place] [address])(W arrior Op Med Cln Tm A Ad) [address] [place] [address])(War rior Op Med Cln Tm A Ad) TELE CONSULT [id number] Notes Entered by: ODALIS HOLLOWAY 18 Mar 2016 1324 ------- ------- ------- ------- -- Colonos copy QUINTIN Alonzo 03/[address] [place] [address])(W arrior Op Med Cln Tm A Ad) [address] [place] [address])(War rior Op Med Cln Tm A Ad) TELE CONSULT [id number] Notes Entered by: FABIOLA GONZALEZ 27 Mar 2016 0707 ------- ------- ------- ------- -- Med not in Pharmac y/Oseas fisher/97 [id number] NIKA DELCID 03/27 Medication Refill Forwarded [address] [place] [address])(W arrior Op Med Cln Tm A Ad) [address] [place] [address])(Med ication Refill Clinic) TELE CONSULT [id number] Notes Entered by: HIREN RODRIGUEZ 31 Mar 2016 1050 ------- ------- ------- ------- -- Med req/Roger restrepo/ [phone] [id number] NIKA DELCID 03/31 Other Not Elsewhere Classified [address] [place] [address])(Oneal levine on Refill Clinic) [address] [place] [address] ([facility])(Sco tt [facility] [place] Fam Res Tm Red) TELE CONSULT [id number] Notes Entered by: Viktoriya CEJA 15 Apr 2016 09 ------- ------- ------- ------- -- Colonos copy results GOPI CEJA 04/[address] [place] [address] Tavo [facility])(S cott [facility] Fam Res Tm Red) [address] [place] [address] Tavo [facility])(War rior Op Med Cln Tm A Ad) TELE CONSULT [id number] Notes Entered by: ANGELIC BENOIT 26 May 2016 0708 ------- ------- ------- ------- -- Sx - fever, ear pain, body ache, - Obszans ki - [phone]* TALIA Beltran 05/26 Referred for Appointment [address] [place] [address] T[facility])(W arrior Op Med Cln Tm A Ad) [address] [place] [address] [facility]avo [facility])(Fam radha Med Tm B Non-AD BCC) OUTPATIENT [id number] Derm Check, NATALIA WOLFE 08/11 Released w/o Limitations [address] [place] [address] [facility])(F amily Med Tm B Non-AD BCC) [address] [place] [address])(War rior Op Med Cln Tm A Ad) TELE CONSULT [id number] Notes Entered by: Tod DARLING 24 Nov 2016 0939 ------- ------- ------- ------- -- Network results Dermato logy 10/13/16 JAVIER FELDER 11/[address] [place] [address] T[facility])(W arrior Op Med Cln Tm A Ad) [address] [place] [address])(War rior Op Med Cln Tm A Ad) TELE CONSULT [id number] Notes Entered by: ANGELIC BENOIT 19 Mar 2017 0843 ------- ------- ------- ------- -- Lab request - Dinora patel - [phone] -[phone] TRICE, QUINTIN J 03/[address] [place] [address] [facility])(W arrior Op Med Cln Tm A Ad) [address] [place] [address] Tavo [facility])(War rior Op Med Cln Tm A Ad) OUTPATIENT [id number] annual physica l and med review [id number] GORGE YA 04/01 Released w/o Limitations [address] [place] [address] [facility])(W arrior Op Med Cln Tm A Ad) [address] [place] [address] Tavo [facility])(Sco [facility]) TELE CONSULT [id number] Notes Entered by: CASSIDY SANTANA RET 06 Jul 2017 1104 ------- ------- ------- ------- -- Rx Renewal /Jade fiore/[phone] [id number] [facility] TRICEQUINTIN Sadler 07/[address] [place] [address] Tavo [facility])(S [facility]) [address] [place] [address] [facility])(War rior Op Med Cln Tm A Ad) TELE CONSULT [id number] Notes Entered by: FABIOLA GONZALEZ 10 Sep 2017 0754 ------- ------- ------- ------- -- [place] Renewal Request /Jade fiore/[phone] TRICE, QUINTIN J 09/[address] [place] [address] T[facility])(W arrior Op Med Cln Tm A Ad) [address] [place] [address] [facility])(War rior Op Med Cln Tm A Ad) TELE CONSULT [id number] Notes Entered by: BRITTNEE ORANTES 20 Sep 2017 1333 ------- ------- ------- ------- -- Redo Dermato arsh patel - - ZENON Kwon 09/20 Other Not Elsewhere Classified [address] [place] [address] Group [facility])(W arrior Op Med Cln Tm A Ad) [address] [place] [address])(War rior Op Med Cln Tm A Ad) OUTPATIENT [id number] Earache [place] [facility] [place]. Wants face to face GORGE YA 09/27 Released w/o Limitations [address] [place] [address] [facility])(W arrior Op Med Cln Tm A Ad) [address] [place] [address])(War rior Op Med Cln Tm A Ad) TELE CONSULT [id number] Notes Entered by: Tod DARLING 28 Sep 2017 1600 ------- ------- ------- ------- -- Dermato logy ZENON Collier 09/28 Referred for Appointment [address] [place] [address])(W arrior Op Med Cln Tm A Ad) [address] [place] [address])(War rior Op Med Cln Tm A Ad) TELE CONSULT [id number] Notes Entered by: BRITTNEE ORANTES 18 Oct 2017 1033 ------- ------- ------- ------- -- Medicat ion ? - Dinora ki - - tsg RAÚL VAUGHAN 10/18 Released w/o Limitations [address] [place] [address] [facility])(W arrior Op Med Cln Tm A Ad) [address] [place] [address] [facility])(Fam radha Med Tm B Non-AD BCC) TELE CONSULT [id number] Notes Entered by: DEJA JEFFERSON 01 Nov 2017 0758 ------- ------- ------- ------- -- Cancel costa rai submitt ed on [id number] SANTOS JEFFERSON 11/01 Referred for Appointment [address] [place] [address])(F amily Med Tm B Non-AD BCC) [address] [place] [address])(War rior Op Med Cln Tm A Ad) OUTPATIENT [id number] Chronic nasal congest ion- GORGE YA 11/15 Released w/o Limitations [address] [place] [address])(W arrior Op Med Cln Tm A Ad) [address] [place] [address])(War rior Op Med Cln Tm A Ad) TELE CONSULT [id number] Notes Entered by: FABIOLA GONZALEZ 25 Jan 2018 0708 ------- ------- ------- ------- -- Med Renewal /Jade fiore/[phone] 34 SANTOS JEFFERSON 01/25 Medication Refill Forwarded [address] [place] [address])(W arrior Op Med Cln Tm A Ad) [address] [place] [address])(War rior Op Med Cln Tm A Ad) TELE CONSULT [id number] Notes Entered by: BRITTNEE ORANTES 11 Mar 2018 0736 ------- ------- ------- ------- -- Order labs Dinora patel - - [facility] ROHIT NEWBERRY 03/11 Referred for Appointment [address] [place] [address])(W arrior Op Med Cln Tm A Ad) [address] [place] [address])(War rior Op Med Cln Tm A Ad) OUTPATIENT [id number] annual check up GORGE YA 04/05 Released w/o Limitations [address] [place] [address])(W arrior Op Med Cln Tm A Ad) [address] [place] [address])(War rior Op Med Cln Tm A Ad) TELE CONSULT [id number] 3 Notes Entered by: FABIOLA GONZALEZ 14 Oct 2018 0725 ------- ------- ------- ------- -- Referra l Caroline Request /Obsjasminen [facility]/618 [phone] 34 MELORANDOLPHSANDEE No 10/14 Referred for Appointment [facility])(W arrior Op Med Cln Tm A Ad) [address] [place] [address])(War rior Op Med Cln Tm A Ad) TELE CONSULT [id number] Notes Entered by: Tod DARLING 13 Mar 2019 1243 ------- ------- ------- ------- -- Network results Derm 11/01/18 GOPI MEDINA 03/[address] [place] [address] [facility])(W arrior Op Med Cln Tm A Ad) [address] [place] [address])(War rior Op Med Cln Tm A Ad) TELE CONSULT [id number] Notes Entered by: BRITTNEE ORANTES 13 Mar 2019 1340 ------- ------- ------- ------- -- Order labs - Elda o - - [facility] LIZ ALEJO 03/13 Other Not Elsewhere Classified [facility])(W arrior Op Med Cln Tm A Ad) [address] [place] [address])(War rior Op Med Cln Tm A Ad) OUTPATIENT [id number] annual check up WALTER PULLIAM 03/20 Released w/o Limitations [facility])(W arrior Op Med Cln Tm A Ad) [facility])(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) TELE CONSULT [id number] Notes Entered by: Oneal CANALES 14 Apr 2019 1634 ------- ------- ------- ------- -- CT ANJANA FERNANDEZ 04/[address] [place] [address])(G yneco gy) [address] [place] [address])(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) TELE CONSULT [id number] Notes Entered by: NIDIA SWANSON 19 Apr 2019 1241 ------- ------- ------- ------- -- Scanned mari means mammogr am into [facility] ANJANA FERNANDEZ 04/[address] [place] [address])(G ynecolo gy) [address] [place] [address])(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) TELE CONSULT [id number] Notes Entered by: DYLAN JONES 20 Apr 2019 0847 ------- ------- ------- ------- -- MRI Order MIGUEL JONES 04/20 Other Not Elsewhere Classified [address] [place] [address])(G yldco gy) [address] [place] [address])([facility]) OUTPATIENT [id number] Initial Counsul tation MILI GUEVARA 05/07 Released w/o Limitations [address] [place] [address] [facility] [place] [place]O [facility]) [address] [place], [place] [address]B [facility] [place] [facility]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) TELE CONSULT [id number] Notes Entered by: Wes GORDON 10 May 2019 1525 ------- ------- ------- ------- -- Network results Radiolo gy 020 ANJANA ROCHE 05/[address] [place] [address] Tavo [facility])(G dallinron gy) [address] [place] [address])([facility]) OUTPATIENT [id number] f/u MILI GUEVARA 05/21 Released w/o Limitations [address] [place] [address])(O [facility]) [address] [place] [address])(War rior Op Med Cln Tm A Ad) OUTPATIENT [id number] f/u appt [phone] CRISTELA COLEMAN 05/22 Released w/o Limitations [address] [place] [address])(W arrior Op Med Cln Tm A Ad) [address] [place] [address])(War rior Op Med Cln Tm A Ad) TELE CONSULT [id number] Notes Entered by: LILY STARR 29 May 2019 1556 ------- ------- ------- ------- -- med questio ns/Derek ordonez/LILY Jones 05/28 Other Not Elsewhere Classified [address] [place] [address])(W arrior Op Med Cln Tm A Ad) [address] [place] [address])([facility]) OUTPATIENT [id number] 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, MILI GUEVARA 06/04 Released w/o Limitations [address] [place] [address])(O [facility]) [address] [place] [address])([facility]) OUTPATIENT [id number] 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 MILI GUEVARA 07/03 Released w/o Limitations [address] [place] [address])(O [facility]) [address] [place] [address])(War rior Op Med Cln Tm A Ad) TELE CONSULT [id number] Notes Entered by: BRITTNEE ORANTES 06 Sep 2019 1431 ------- ------- ------- ------- -- Request jenelle faith MELISSA egan - Nino y - - SARAH Waldrop 09/05 Other Not Elsewhere Classified [address] [place] [address] [facility])(W arrior Op Med Cln Tm A Ad) [address] [place] [address])(War rior Op Med Cln Tm A Ad) TELE CONSULT [id number] Notes Entered by: KIRSTIE ARTEAGA 15 Sep 2019 0733 ------- ------- ------- ------- -- Med Inquiry - [facility] [place]/ Nino y/ - SARAH Churchill 09/14 Other Not Elsewhere Classified [address] [place] [address])(W arrior Op Med Cln Tm A Ad) [address] [place] [address])(Fam radha Med Tm B Non-AD BCC) TELE CONSULT [id number] Notes Entered by: REZA GARCIA 20 Oct 2019 0855 ------- ------- ------- ------- -- Network Results DERMATO LOGY 11/01/18 RAFAEL FIERRO 10/[address] [place] [address] [facility])(F amily Med Tm B Non-AD BCC) [address] [place] [address])(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 Procedure Procedure Type Code Date Perfomer Comments Sourc e No data available for this section Ambulato ry Pharmacy TELE ASSESS & MGT SRV PROV QUAL NONPHYS HLTH CARE PRO TO EST PAT,PARENT,GUARD NOT ORIG REL ASSESS & MGT SRV PROV W/IN PREV 7 DAYS NOR LEAD ASSESS & MGT SRV/PX W/IN NXT 24 HR/SOON APT;5-10 MIN MED DIS 09/15/19 DoD TELE ASSESS & MGT SRV PROV QUAL NONPHYS HLTH CARE PRO TO EST PAT,PARENT,GUARD NOT ORIG REL ASSESS & MGT SRV PROV W/IN PREV 7 DAYS NOR LEAD ASSESS & MGT SRV/PX W/IN NXT 24 HR/SOON APT;5-10 MIN MED DIS 09/06/19 [facility] HEALTH BEHAVIOR ASSESSMENT, OR RE-ASSESSMENT (IE, HEALTH-FOCUSED CLINICAL INTERVIEW, BEHAVIORAL OBSERVATIONS, CLINICAL DECISION MAKING) 07/04/19 [facility] BRIEF EMOTIONAL/BEHAVIO RAL ASSESSMENT (EG, DEPRESSION INVENTORY, ATTENTION-DEFICIT /HYPERACTIVITY DISORDER [ADHD] SCALE), WITH SCORING AND DOCUMENTATION, PER STANDARDIZED INSTRUMENT 06/05/19 [facility] BRIEF COMM TECH-BASE SERV,E.G. VIRT CHK-IN,BY PHYS/OTH QUAL HCP,RPT E&M SERV,PROV TO EST PT,NOT ORIG FRM REL E/M SERV PROV W/IN PREV 7DAY NOR LEAD TO E/M SRV/PX W/IN NEXT 24HR/SOON TIFFANIE; 5-10 MIN DISC 05/25/19 [facility] BRIEF EMOTIONAL/BEHAVIO RAL ASSESSMENT (EG, DEPRESSION INVENTORY, ATTENTION-DEFICIT /HYPERACTIVITY DISORDER [ADHD] SCALE), WITH SCORING AND DOCUMENTATION, PER STANDARDIZED INSTRUMENT 05/22/19 [facility] HEALTH BEHAVIOR INTERVENTION, INDIVIDUAL, [id number]; INITIAL 30 MINUTES 05/08/19 [facility] SCREENING PAPANICOLAOU SMEAR; OBTAINING, PREPARING AND CONVEYANCE OF CERVICAL OR VAGINAL SMEAR TO LABORATORY 03/29/19 [facility] TELE ASSESS & MGT SRV PROV QUAL NONPHYS HLTH CARE PRO TO EST PAT,PARENT,GUARD NOT ORIG REL ASSESS & MGT SRV PROV W/IN PREV 7 DAYS NOR LEAD ASSESS & MGT SRV/PX W/IN NXT 24 HR/SOON APT;5-10 MIN MED DIS 10/15/19 [facility] TELE ASSESS & MGT SRV PROV QUAL NONPHYS HLTH CARE PRO TO EST PAT,PARENT,GUARD NOT ORIG REL ASSESS & MGT SRV PROV W/IN PREV 7 DAYS NOR LEAD ASSESS & MGT SRV/PX W/IN NXT 24H/SOON APT; 11-20 MIN MED DIS 01/26/20 18 DoD ONLINE ASSESS &MANAG SERV PROVIDE,A QUAL NONPHYS HCP TO AN ESTABLISHED PAT/GUARDIAN,NOT ORIGINAT FRM RELAT ASSESS &MANAG SERV PROVIDE W/IN THE PREV 7 DAYS,USE THE INTERNET/SIMILAR [employer]WORK 11/17/19 18 DoD TELE ASSESS & MGT SRV PROV QUAL NONPHYS HLTH CARE PRO TO EST PAT,PARENT,GUARD NOT ORIG REL ASSESS & MGT SRV PROV W/IN PREV 7 DAYS NOR LEAD ASSESS & MGT SRV/PX W/IN NXT 24H/SOON APT; 11-20 MIN MED DIS 11/02/19 18 DoD TELE ASSESS & MGT SRV PROV QUAL NONPHYS HLTH CARE PRO TO EST PAT,PARENT,GUARD NOT ORIG REL ASSESS & MGT SRV PROV W/IN PREV 7 DAYS NOR LEAD ASSESS & MGT SRV/PX W/IN NXT 24 HR/SOON APT;5-10 MIN MED DIS 09/29/19 18 DoD REMOVAL IMPACTED CERUMEN REQUIRING INSTRUMENTATION, UNILATERAL 09/29/19 18 DoD TELE ASSESS & MGT SRV PROV QUAL NONPHYS HLTH CARE PRO TO EST PAT,PARENT,GUARD NOT ORIG REL ASSESS & MGT SRV PROV W/IN PREV 7 DAYS NOR LEAD ASSESS & MGT SRV/PX W/IN NXT 24 HR/SOON APT;5-10 MIN MED DIS 09/21/19 18 DoD TELE ASSESS & MGT SRV PROV QUAL NONPHYS HLTH CARE PRO TO EST PAT,PARENT,GUARD NOT ORIG REL ASSESS & MGT SRV PROV W/IN PREV 7 DAYS NOR LEAD ASSESS & MGT SRV/PX W/IN NXT 24 HR/SOON APT;5-10 MIN MED DIS 09/11/19 18 DoD TELE ASSESS & MGT SRV PROV QUAL NONPHYS HLTH CARE PRO TO EST PAT,PARENT,GUARD NOT ORIG REL ASSESS & MGT SRV PROV W/IN PREV 7 DAYS NOR LEAD ASSESS & MGT SRV/PX W/IN NXT 24 HR/SOON APT;5-10 MIN MED DIS 07/07/19 18 DoD TELE ASSESS & MGT SRV PROV QUAL NONPHYS HLTH CARE PRO TO EST PAT,PARENT,GUARD NOT ORIG REL ASSESS & MGT SRV PROV W/IN PREV 7 DAYS NOR LEAD ASSESS & MGT SRV/PX W/IN NXT 24 HR/SOON APT;5-10 MIN MED DIS 03/19/19 18 DoD TELE ASSESS & MGT SRV PROV QUAL NONPHYS HLTH CARE PRO TO EST PAT,PARENT,GUARD NOT ORIG REL ASSESS & MGT SRV PROV W/IN PREV 7 DAYS NOR LEAD ASSESS & MGT SRV/PX W/IN NXT 24 HR/SOON APT;5-10 MIN MED DIS 05/27/19 17 DoD TELE ASSESS & MGT SRV PROV QUAL NONPHYS HLTH CARE PRO TO EST PAT,PARENT,GUARD NOT ORIG REL ASSESS & MGT SRV PROV W/IN PREV 7 DAYS NOR LEAD ASSESS & MGT SRV/PX W/IN NXT 24 HR/SOON APT;5-10 MIN MED DIS 03/27/19 17 DoD TELE ASSESS & MGT SRV PROV QUAL NONPHYS HLTH CARE PRO TO EST PAT,PARENT,GUARD NOT ORIG REL ASSESS & MGT SRV PROV W/IN PREV 7 DAYS NOR LEAD ASSESS & MGT SRV/PX W/IN NXT 24 HR/SOON APT;5-10 MIN MED DIS 03/18/19 17 DoD TELE ASSESS & MGT SRV PROV QUAL NONPHYS HLTH CARE PRO TO EST PAT,PARENT,GUARD NOT ORIG REL ASSESS & MGT SRV PROV W/IN PREV 7 DAYS NOR LEAD ASSESS & MGT SRV/PX W/IN NXT 24H/SOON APT; 11-20 MIN MED DIS 08/29/19 11 [facility] NONINVASIVE EAR OR PULSE OXIMETRY FOR OXYGEN SATURATION; SINGLE DETERMINATION 06/19/19 03 [facility] Non-Physician Phone Call To Patient/Provider Brief (5-10min) Non-Physician Phone Call To Patient/Provid er Brief (5-10min) [id number] 10/15/19 19 LIZ ALEJO DoD Non-Physician Phone Call To Pt/Provider Intermed (11-20 min) Non-Physician Phone Call To Pt/Provider Intermed (11-20 min) [id number] 01/26/20 18 SANTOS JEFFERSON DoD Internet Med Svc Qual Nonphys Healthcare Prof Estab Patient Internet Med Svc Qual Nonphys Healthcare Prof Estab Patient [id number] 11/17/19 18 GORGE YA Non-Physician Phone Call To Pt/Provider Intermed (11-20 min) Non-Physician Phone Call To Pt/Provider Intermed (11-20 min) [id number] 11/02/19 18 SANTOS JEFFERSON [facility] Non-Physician Phone Call To Patient/Provider Brief (5-10min) Non-Physician Phone Call To Patient/Provid er Brief (5-10min) [id number] 09/30/19 18 ZENON LEON [facility] Cerumen Removal Cerumen Removal [id number] 09/29/19 18 GORGE YA Ear irrigation of the left ear is done per [facility] written orders. Prior to irrigation tympanic membrane was not visible. 120 mL H2O with 15 % peroxide was used. Tympanic Membrane is now visible after irrigation. It is dull. The ear canal is red and irritated. A brown ball of wax was flushed out of Patients ear. Patient states he/she can now hear out of that ear. Patient states their pain has subsided. HCP notified of results. Whisper test accomplished, patient able to hear the noise. Patient asked about cleaning his ears, was advised to use Debrox and follow directions on the container. [facility] Non-Physician Phone Call To Patient/Provider Brief (5-10min) Non-Physician Phone Call To Patient/Provid er Brief (5-10min) [id number] 09/21/19 18 ZENON LEON Non-Physician Phone Call To Patient/Provider Brief (5-10min) Non-Physician Phone Call To Patient/Provid er Brief (5-10min) [id number] 09/14/19 18 TRICE, QUINTIN J [facility] Non-Physician Phone Call To Patient/Provider Brief (5-10min) Non-Physician Phone Call To Patient/Provid er Brief (5-10min) [id number] 07/07/19 18 TRICE, QUINTIN J [facility] Non-Physician Phone Call To Patient/Provider Brief (5-10min) Non-Physician Phone Call To Patient/Provid er Brief (5-10min) [id number] 03/19/19 18 TRICE, QUINTIN J [facility] Non-Physician Phone Call To Patient/Provider Brief (5-10min) Non-Physician Phone Call To Patient/Provid er Brief (5-10min) [id number] 05/27/19 17 TALIA SAENZ [facility] Non-Physician Phone Call To Patient/Provider Brief (5-10min) Non-Physician Phone Call To Patient/Provid er Brief (5-10min) [id number] 04/01/19 17 NIKA DELCID [facility] Non-Physician Phone Call To Patient/Provider Brief (5-10min) Non-Physician Phone Call To Patient/Provid er Brief (5-10min) [id number] 03/26/19 17 QUINTIN CARNES [facility] Non-Physician Phone Call To Pt/Provider Intermed (11-20 min) Non-Physician Phone Call To Pt/Provider Intermed (11-20 min) [id number] 09/12/19 11 EMILIA HARVEY [facility] Screening papanicolaou smear; obtaining, preparing and conveyance of cervical or vaginal smear to laboratory ANJANA FERNANDEZ [facility] Health And Behavior Intervention, Each 15 Minutes Individual Health And Behavior Intervention, Each 15 Minutes Individual [id number] MILI GUEVARA [facility] Brief communication technology-based service, e.g. virtual check-in, by a physician or other qualified health care profe ional who can report evaluation and management services, provided to an established patient, not originating from a related E/M service provided within the previous 7 days nor leading to an E/M service or procedure within the next 24 hours or soonest available appointment; 5-10 minutes of medical discu ion RICKY COLEMAN [facility] Brief communication technology-based service, e.g. virtual check-in, by a physician or other qualified health care profe ional who can report evaluation and management services, provided to an established patient, not originating from a related E/M service provided within the previous 7 days nor leading to an E/M service or procedure within the next 24 hours or soonest available appointment; 5-10 minutes of medical discu ion MILI GUEVARA 30 phone contact DoD Waiver services; not otherwise specified (NOS) MILI GUEVARA 30min phon e contact DoD Health And Behavior A e ment, Each 15 Minutes Health And Behavior Assessment, Each 15 Minutes [id number] MILI GUEVARA Non-Physician Phone Call To Patient/Provider Brief (5-10min) Non-Physician Phone Call To Patient/Provid er Brief (5-10min) [id number] SARAH RODRIGUEZ [facility] Social History Combined list of available smoking, tobacco, and other social history from [facility] facilities. Social History Type Response Date Comment Sour e Sex Representation Female (finding) 12/04/2019 Unknown Organization Sexual Orientation Ambula tory Pharmacy Gender identity Ambulator y Pharmacy This section is an empty social history section. [facility] Assessment and Plan Combined list of future care activities from [facility] of Defense and Veterans Affairs facilities (e.g., assessment and plan notes, appointments, orders, and referrals). Additional future care activities may be listed in the Plan of Care section. Result Assessment and Plan Date Source Assessment and Plan No data available for this section 08/02/2024 Ambulatory Pharmacy Functional Status Combined list of recent functional and cognitive assessments recorded at [facility] ([facility] Functional [place]au Measurement (FIM) Scale: 1 = Total Assistance (Subject = 0% +), 2 = Maximal Assistance (Subject = 25% +), 3 = Moderate Assistance (Subject = 50% +), 4 = Minimal Assistance (Subject = 75% +), 5 = Supervision, 6 = Modified Moniteau (Device), 7 = Complete [place] (Timely, Safely). Assessment Date/Time Source Assessment Type Assessment Skill Assessment Score Assessment Details No data available for this section
--- OUTSIDE RECORDS SUMMARY | 2024-08-02 06:44 | XMS_ITS | Referral Summary ---
Author Organization [facility] al Address [address] [place] [address] Care Team Providers Care Synthetic Gem Press Operator Name Role Phone Jami Bryan MD Primary Care Provider + Bernarda Robin MD Unavailable [phone] Encounters Date Type Department Care Team Description 06/21/2024 Orders Only [facility] Gastroenterology [address] [place] [address] Medical Office Building [address], [address] [place] [address] Cyn Alcocer MD Pancreatic mass (Primary Dx) from Last 3 Months Allergies Active Allergy Reactions Criticality Noted Date [...] tabletIndications: hypomagnesemia 1 tablet (200 mg total) 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 Active Active Problems Problem Noted Date Diagnosed Date Pancreatic mass 08/14/2020 Overview (08/14/2020): Added automatically from request for surgery [id number] Social History Tobacco Use Types Packs/Day Years [...] on file Legal Sex Female 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 Gender Identity Female 09/03/2020 7:19 AM CDT Sexual Orientation Straight 09/03/2020 7: 19 AM CDT Last Filed Vital Signs Vital Sign Reading [...] 09/02/2023 8:36 AM CDT Plan of Treatment Not on file Insurance [facility] [employer] CHOICE MEDICARE PPO [address] MEDICARE ADVANTAGE [facility] MEDICARE ADVANTAGE FOR LIFE Advance Directives For more information, please contact: [phone] * Full Code (Latest Code Status on File) Date Activated Date Inactivated Comments 06/27/2021 7:28 AM 06/27/2021 1:31 PM * Full Code Date Activated Date Inactivated Comments 08/11/2020 5:54 PM 08/13/2020 4:44 PM * Full Code Date Activated Date Inactivated Comments 08/08/2020 8:24 AM 08/08/2020 2:33 PM Care Teams Synthetic Gem Press Operator Relationship Specialty Start Date End Date Jami Bryan MD [address] [place] [address] PCP - General 12/22/19 Bernarda Robin MD [address] [place] [address] Analysis Director Gastroenterology 08/14/20
--- OUTSIDE RECORDS SUMMARY | 2024-08-02 06:44 | XMS_ITS | Continuity of Care Document ---
Author Organization [facility] Address [address] [place] [address] Phone Care Team Providers Care Field Service Rep Name Role Phone Gross OD, Adrian Unavailable Unavailable Procedures Procedure Date Eye Exam & Treatment Refraction Advance Directives Directive Yes / No Effective Date File Name No Information Encounters Encounter Description Practice Location Reason(s) For Visit Diagnoses Date Provider Providers Copied on Encounter [facility], [address], [place], [place], [id number], [place] tel:[phone] SEC [facility] No Information 9-200 9 Gross OD Adrian. [address] , [address], [place], [address], [place]. tel:[phone] Family History Family Member Type Diagnosis Age At Onset No Information Payers Payer name Insurance type Covered republican ID Authoriza tion(s) No Information Social History Type Description Quantity Date Captured Comments Sex Female Smoking Status No Information Chief Complaint And Reason For Visit No Information Reason For Referral Reason For Referral No Information History Of Present Illness Encounter Date Complaint History Of Prese nt Illness No Information Functional Status Date Functional Assessmen t No Information Instructions Date Instruction Additional Infor mation No Information Assessments Type Assessment Date No Information Patient Care Teams Name Effective Dates (start - stop) Status Members No Information
--- OUTSIDE RECORDS SUMMARY | 2024-08-02 06:44 | XMS_ITS | CONTINUITY OF CARE DOCUMENT ---
Author Name sabas obregon Address Unknown Organization [facility] Address [address] [facility] [address] [place] [address] Phone [phone] Care Team Providers Care Forensic Medical Examiner Name Role Phone Enrike cMnulty MD Unavailable [phone] TONYA FARAH MD Unavailable [phone] TONYA FARAH MD Unavailable [phone] PROBLEMS Condition Status Date Provider Notes BRADYCARDIA active Enrike Mcnulty MD HYPOTHYROIDISM active Enrike Mcnulty MD BRADYCARDIA SINUS-01/14 HOLTER SR 43-94 active ? Emeka Espinoza RN ENCOUNTERS Date Type Provider Location Encounter Diag nosis - In-person encounter Office Visit Enrike Mcnulty MD [place] - In-person encounter Office Visit Enrike Mcnulty MD [facility] - In-person encounter Office Visit Enrike Mcnulty MD [facility] - In-person encounter Office Visit Enrike Mcnulty MD [facility] BRADYCARDIAHYPOTHYROIDISMBRADYCARDIA SINUS-01/14 HOLTER SR 43-94 VITAL SIGNS Date Observation Value Provider blood pressure, diastolic, left arm 64 mm [Hg] Emeka Espinoza RN blood pressure, systolic, left arm 121 mm [Hg] Emeka Espinoza RN blood pressure, diastolic, right arm 78 m m[Hg] Emeka Espinoza RN blood pressure, systolic, right arm 118 m m[Hg] Emeka Espinoza RN blood pressure, diastolic 64 mm[Hg] Dano Espinoza RN blood pressure, systolic 121 mm[Hg] Emeka Espinoza RN pulse rate 61 /min Emeka Cantus RN oxygen saturation, oximetry 100 % Emeka Cantus RN respiratory rate E&M 18 /min Emeka manjarrez RN weight E&M 145 [lb_av] Emeka Cantus RN blood pressure, diastolic 72 mm[Hg] Dano Espinoza RN blood pressure, systolic 117 mm[Hg] Emeka Espinoza RN pulse rate 55 /min Emeka Cantus RN oxygen saturation, oximetry 97 % Emeka Cantus RN respiratory rate E&M 16 /min Emeka manjarrez RN weight E&M 148 [lb_av] Emeka Cantus RN blood pressure, diastolic, left arm 76 mm [Hg] Emeka Cantus RN blood pressure, systolic, left arm 127 mm [Hg] Emeka Cantus RN blood pressure, diastolic, right arm 68 m m[Hg] Emeka Espinoza RN blood pressure, systolic, right arm 115 m m[Hg] Emeka Cantus RN blood pressure, diastolic 68 mm[Hg] Dano sharma Espinoza RN blood pressure, systolic 115 mm[Hg] Emeka Espinoza RN pulse rate 65 /min Emeka Espinoza RN oxygen saturation, oximetry 99 % Emeka Cantus RN respiratory rate E&M 16 /min Emeka manjarrez RN weight E&M 149 [lb_av] Emeka Cantus RN blood pressure, diastolic, left arm 86 mm [Hg] Renny Manacop blood pressure, systolic, left arm 139 mm [Hg] Renny [place] blood pressure, diastolic, right arm 75 m m[Hg] Renny [place] blood pressure, systolic, right arm 138 m m[Hg] Renny [place] blood pressure, diastolic 75 mm[Hg] Ibeth corral [place] blood pressure, systolic 138 mm[Hg] Harjinder spangler [facility] pulse rate 68 /min [facility] oxygen saturation, oximetry 98 % [facility] respiratory rate E&M 16 /min [facility] weight E&M 141 [lb_av] [facility] ALLERGIES Allergy Name Onset Date Reaction Criticality Status SULFA High Criticality active RESULTS Date Observation Value Provider Reference Range Interpretation Location 3 thyroid stimulating hormone, serum 1.00 u[IU]/mL [facility] [place] 3 thyroxine, serum, free 1.3 ng/dL [facility] 3 platelet count 232 10*3/uL [facility] 3 red blood cell distribution width 12.7 % [facility] 3 mean corpuscular hemoglobin concentration, RBC 34.2 g/dL [facility] 3 mean corpuscular hemoglobin, RBC 30.5 pg [facility] 3 mean corpuscular volume, RBC 89.2 fL [facility] 3 hematocrit, blood 38.8 % [facility] 3 hemoglobin, blood 13.3 g/dL [facility] 3 erythrocyte (RBC) count 4.35 10*6/mm3 [facility] 3 monocytes as percent of blood leukocytes 8.8 % [facility] 3 lymphocytes as percent of blood leukocytes 33.9 % [facility] 3 leukocyte count, blood 4.5 10*3/mm3 [facility] [place] 3 calcium, serum 9.4 mg/dL [facility] 3 blood glucose, fasting 88 mg/dL [facility] 3 creatinine, serum 0.92 mg/dL [facility] [place] 3 urea nitrogen, blood 18 mg/dL [facility] 3 carbon dioxide, serum, total 27 mmol/L [facility] 3 chloride, serum 102 mmol/L [facility] 3 potassium, serum 3.9 mmol/L Efraín Torrez 3 sodium, serum 139 mmol/L Efraín Torrez HISTORY OF MEDICATION USE Medication Status Instructions Dates Provider Indications Com ments DARVOCET-N 100 TABS active 1-2 tabs every 4-6 hrs as needed Emeka Espinoza RN TYLENOL active as needed Emeka Espinoza RN CRESTOR 10 MG ORAL TABLET active ONE TAB. 3 times week Emeka Espinoza RN METROGEL active facial applicati on every other night Emeka Espinoza RN CALCIUM CHEW active daily Elsafrancesco song MA LEVOXYL 88 MCG ORAL TABLET active ONE TAB. DAILY Elsa Weston MA VITAMIN D3 2000 UNIT ORAL CAPSULE active once daily Elsa Mak l WALLY CENTRUM ORAL TABLET active once daily Elsa Enrico LO SOCIAL HISTORY Date Observation Value Provider social history reviewed E&M reviewed Emeka Espinoza RN social history reviewed E&M reviewed Emeka Espinoza RN social history reviewed E&M reviewed Emeka Espinoza RN social history E&M Marital Statu s: L nieves with family/friends E thnicity: Emeka Espinoza RN social history reviewed E&M reviewed Emeka Espinoza RN physical exercise, f requency, [facility], averag e drinks per day yes [facility] alcohol use, average drinks per day social basis only [facility] number of years as a smoker 10 years or m ore [facility] smoking status Quit [facility] MENTAL STATUS Date Observation Value Provider assessment of judgme nt and insight E&M Alert and oriented to time, place and person. Mood and affect are normal. Emeka Espinoza RN assessment of judgme nt and insight E&M Alert and oriented to time, place and person. Mood and affect are normal. Emeka Espinoza RN assessment of judgme nt and insight E&M Alert and oriented to time, place and person. Mood and affect are normal. Emeka Espinoza RN assessment of judgme nt and insight E&M Alert and oriented to time, place and person. Mood and affect are normal. Emeka Espinoza RN INSURANCE PROVIDERS Payer name Policy type / Coverage type Critical access hospital ID [facility] [id number] TREATMENT PLAN Date Name Performer routine: B P today: 117/72 P rior BP: 115/68 (01/28/2009) Labs Reviewed: C reat: 0.92 (11/28/2008) Enrike Mcnulty MD routine: B P today: 117/72 Prior BP: 115/68 (01/28/2009) N uclear Stress Findings: 1. Normal Satya protocol exercise tolerance test. 2 . Normal left ventricular size and function with a calculated ejection fraction of 65%. 3 . Myocardial scintigraphy is normal without evidence for previous myocardial infarction or reversible ischemia. GC (01/22/2009) H gb: 13.3 (11/28/2008) HCT: 38.8 (11/28/2008) RBC: 4.35 (11/28/2008) WBC: 4.5 (11/28/2008) B UN: 18 (11/28/2008) Creat: 0.92 (11/28/2008) Glucose: 88 (11/28/2008) N a+: 139 (11/28/2008) K+: 3.9 (11/28/2008) Cl: 102 (11/28/2008) TSH: 1.00 (11/28/2008) Echocardiogram: Normal left ventricular systolic function. Normal left ventricular size. Normal left ventricular wall thickness. Normal left ventricular diastolic function. Normal E/E` 7.3. Left ventricular ejection fraction is estimated at 60%. The mitral valve is normal in appearance and function. There is trace physiologic mitral valve regurgitation. Aortic valve appears structurally normal. Velocities, as well as gradients across the aortic valve are normal. No evidence of aortic insufficiency. Normal pericardium with no pericardial or pleural effusion. Normal aortic root. - (01/22/2009) Enrike Mcnulty MD test results: B P today: 115/68 Prior BP: 138/75 (01/07/2009) N uclear Stress Findings: 1. Normal Satya protocol exercise tolerance test. 2 . Normal left ventricular size and function with a calculated ejection fraction of 65%. 3 . Myocardial scintigraphy is normal without evidence for previous myocardial infarction or reversible ischemia. GC (01/22/2009) H gb: 13.3 (11/28/2008) HCT: 38.8 (11/28/2008) RBC: 4.35 (11/28/2008) WBC: 4.5 (11/28/2008) B UN: 18 (11/28/2008) Creat: 0.92 (11/28/2008) Glucose: 88 (11/28/2008) N a+: 139 (11/28/2008) K+: 3.9 (11/28/2008) Cl: 102 (11/28/2008) TSH: 1.00 (11/28/2008) Echocardiogram: Normal left ventricular systolic function. Normal left ventricular size. Normal left ventricular wall thickness. Normal left ventricular diastolic function. Normal E/E` 7.3. Left ventricular ejection fraction is estimated at 60%. The mitral valve is normal in appearance and function. There is trace physiologic mitral valve regurgitation. Aortic valve appears structurally normal. Velocities, as well as gradients across the aortic valve are normal. No evidence of aortic insufficiency. Normal pericardium with no pericardial or pleural effusion. Normal aortic root. - GC (01/22/2009) Enrike Mcnulty MD test results: B P today: 115/68 P rior BP: 138/75 (01/07/2009) Labs Reviewed: C reat: 0.92 (11/28/2008) Enrike cMnulty MD Slow Heart Rate: B P today: 138/75 Prior BP: / () Enrike Mcnulty MD Slow Heart Rate: H er updated medication list for this problem includes: Levoxyl 88 Mcg Tabs (Levothyroxine sodium) ..... One tab. daily Enrike Mcnulty MD Date Name Stress Test - Nuclea r Holter Monitor 24 Hr Complete Echo HISTORY OF PROCEDURES Procedure Date Procedure Name Provider Procedure Notes S ivelisse EKG Enrike Mcnulty MD completed
== END 2024-08-02 06:37 | disposition home or self-care (01) ==
PROVIDERS: PCP Internal Medicine
DX: K86.89 Other specified diseases of pancreas (principal)
CPT/HCPCS: 74181; 76376; A9577

== ENCOUNTER 2024-08-04 07:11 | Outpatient (CLI) | payer MEDICARE, OTHER, SELFPAY ==
--- NOTE | ~2024-08-04 | MM_ITS ---
EXAMINATION: MM screening [facility] BI w jeremy HISTORY: Screening TECHNIQUE: Craniocaudal and mediolateral oblique 3-D tomosynthesis images were obtained and synthetic 2-D images were generated. CAD analysis was submitted and interpreted. COMPARISON: Comparison to multiple prior studies sequentially, with oldest reviewed study dated 09/04. BREAST PARENCHYMAL COMPOSITION: Not dense: There are scattered areas of fibroglandular density. FINDINGS: There is no evidence of suspicious mass, calcification, or architectural distortion to sugg est malignancy in either breast. There has been no suspicious interval change. IMPRESSION: 1. No mammographic evidence of malignancy. 2. Recommend routine screening mammography in one year. BI-RADS Category 1: Negative Reviewed, dictated and finalized at location A.
== END 2024-08-04 07:12 | disposition home or self-care (01) ==
PROVIDERS: PCP Internal Medicine; Visit Provider Internal Medicine
DX: Z12.31 Encounter for screening mammogram for malignant neoplasm of breast (principal)
CPT/HCPCS: 77063; 77067